=== PATIENT | female | born 1940 | race Caucasian/White ===

== ENCOUNTER 2016-11-02 17:54 | Emergency (ER) | payer MEDICARE ==
[2016-11-02] MEDS ORDERED: Sodium Chloride 0.9% 10 ML Syringe FLUSH PRN (18:09)
[2016-11-02] MEDS ORDERED: Sodium Chloride 0.9% 1,000 ML IV ONE (18:10)
--- NOTE | 2016-11-02 19:19 | EDM.PDOC ---
ED HPI SEIZURE COMPLAINT - General Time Seen by Provider: 11/02/16 17:55 - History of Present Illness INITIAL COMMENTS - FREE TEXT/NARRATIVE: DICTATED BY URIAH ARIAS PA-C - Related Data Allergies/ADRs: Allergies Allergy/AdvReac Type Severity Reaction Status Date / Time No Known Allergies Allergy Verified 11/02/16 19:23 Home Meds: Home Meds ALPRAZolam [Alprazolam] 0.25 mg PO Q12H PRN 11/02/16 [History] Levothyroxine 75 mcg PO ACBREAKFAST 11/02/16 [History] Lisinopril [Prinivil] 20 mg PO DAILY 11/02/16 [History] Oxybutynin [Oxybutynin ER] 10 mg PO DAILY 11/02/16 [History] Sertraline [Zoloft] 100 mg PO DAILY 11/02/16 [History] Social & Family History - Tobacco Use Second Hand Smoke Exposure: No - Alcohol Use Days Per Week of Alcohol Use: 0 - Recreational Drug Use Recreational Drug Use: No ED ROS GENERAL - Review of Systems Review Of Systems: See Below (DICTATED BY URIAH ARIAS PA-C) - Physical Exam Exam: See Below (DICTATED BY URIAH ARIAS PA-C) Course - Vital Signs Last Recorded V/S: Last Vital Signs Temp 35.3 C 11/02/16 18:00 Pulse 93 11/02/16 18:00 Resp 16 11/02/16 18:00 BP 147/51 H 11/02/16 18:00 Pulse Ox 92 L 11/02/16 18:00 - Orders/Labs/Meds Orders: Active Orders 24 hr Category Date Time Status EKG Documentation Completion [RC] STAT Care 11/02/16 18:09 Active CK W CKMB [CHEM] Stat Lab 11/02/16 18:33 Results COMPREHENSIVE METABOLIC PN,CMP [CHEM] Stat Lab 11/02/16 18:33 Results TROPONIN I [CHEM] Stat Lab 11/02/16 18:33 Results TSH ULTRASENSITIVE [CHEM] Stat Lab 11/02/16 18:33 Results Labs: Laboratory Tests 11/02/16 11/02/16 11/02/16 Range/Units 18:33 18:33 18:33 WBC 11.1 H (4.0-10.0) x10^3/uL RBC 3.99 L (4.00-5.50) x10^6/uL Hgb 12.1 (12.0-16.0) g/dL Hct 36.0 (33.0-47.0) % MCV 90.2 (78.0-93.0) fL MCH 30.3 (26.0-32.0) pg MCHC 33.6 (32.0-36.0) g/dL RDW Coeff of Damaris 14.3 (10.0-15.0) % Plt Count 295 (130-400) x10^3/uL Neut % (Auto) 86.5 H (50.0-80.0) % Lymph % (Auto) 7.2 L (25.0-50.0) % [place] % (Auto) 5.7 (2.0-11.0) % Eos % (Auto) 0.2 (0.0-4.0) % Baso % (Auto) 0.4 (0.2-1.2) % PT 10.9 (10.0-12.8) SEC INR 1.0 L (2.0-3.5) Sodium 137 (136-145) mmol/L Potassium 3.7 (3.5-5.1) mmol/L Chloride 102 (98-107) mmol/L Carbon Dioxide 26 (21-32) mmol/L BUN 17 (7-18) mg/dL Creatinine 1.0 (0.55-1.02) mg/dL Est Cr Clr Drug Dosing TNP Estimated GFR (MDRD) 54 Glucose 124 H (74-106) mg/dL Calcium 8.4 L (8.5-10.1) mg/dL Corrected Calcium 9.76 (8.5-10.1) mg/dL Total Bilirubin 1.1 H (0.2-1.0) mg/dL AST 12 L (15-37) U/L ALT 19 (14-59) U/L Alkaline Phosphatase 71 (46-116) U/L Creatine Kinase 82 (26-192) U/L Creatine Kinase Index 0.9 (0.0-4.0) % CK-MB (CK-2) 0.7 (0.0-3.6) ng/mL Troponin I < 0.017 (<=0.056) ng/mL Total Protein 7.2 (6.4-8.2) g/dL Albumin 2.3 L (3.4-5.0) g/dL Globulin 4.9 Albumin/Globulin Ratio 0.47 Urine Color (YELLOW) Urine Appearance (CLEAR) Urine pH (5.0-8.0) Ur Specific [place] Urine Protein (NEGATIVE) mg/dL Urine Glucose (UA) (NEGATIVE) mg/dL Urine Ketones (NEGATIVE) mg/dL Urine Occult Blood (NEGATIVE) Urine Nitrite (NEGATIVE) Urine Bilirubin (NEGATIVE) Urine Urobilinogen (0.2) EU/dL Ur Leukocyte Esterase (NEGATIVE) Urine RBC (NOT SEEN) /HPF Urine WBC (NOT SEEN) /HPF Ur Squamous Epith Cells (NEGATIVE) /HPF Ur Renal Epithelial Cell (NEGATIVE) /HPF Amorphous Sediment Urine Mucus (NEGATIVE) /LPF 11/02/16 Range/Units 18:55 WBC (4.0-10.0) x10^3/uL RBC (4.00-5.50) x10^6/uL Hgb (12.0-16.0) g/dL Hct (33.0-47.0) % MCV (78.0-93.0) fL MCH (26.0-32.0) pg MCHC (32.0-36.0) g/dL RDW Coeff of Damaris (10.0-15.0) % Plt Count (130-400) x10^3/uL Neut % (Auto) (50.0-80.0) % Lymph % (Auto) (25.0-50.0) % [place] % (Auto) (2.0-11.0) % Eos % (Auto) (0.0-4.0) % Baso % (Auto) (0.2-1.2) % PT (10.0-12.8) SEC INR (2.0-3.5) Sodium (136-145) mmol/L Potassium (3.5-5.1) mmol/L Chloride (98-107) mmol/L Carbon Dioxide (21-32) mmol/L BUN (7-18) mg/dL Creatinine (0.55-1.02) mg/dL Est Cr Clr Drug Dosing Estimated GFR (MDRD) Glucose (74-106) mg/dL Calcium (8.5-10.1) mg/dL Corrected Calcium (8.5-10.1) mg/dL Total Bilirubin (0.2-1.0) mg/dL AST (15-37) U/L ALT (14-59) U/L Alkaline Phosphatase (46-116) U/L Creatine Kinase (26-192) U/L Creatine Kinase Index (0.0-4.0) % CK-MB (CK-2) (0.0-3.6) ng/mL Troponin I (<=0.056) ng/mL Total Protein (6.4-8.2) g/dL Albumin (3.4-5.0) g/dL Globulin Albumin/Globulin Ratio Urine Color Dark yellow H (YELLOW) Urine Appearance Cloudy H (CLEAR) Urine pH 6.0 (5.0-8.0) Ur Specific [place] 1.010 Urine Protein Negative (NEGATIVE) mg/dL Urine Glucose (UA) Negative (NEGATIVE) mg/dL Urine Ketones Negative (NEGATIVE) mg/dL Urine Occult Blood Negative (NEGATIVE) Urine Nitrite Negative (NEGATIVE) Urine Bilirubin Negative (NEGATIVE) Urine Urobilinogen 1.0 (0.2) EU/dL Ur Leukocyte Esterase Small H (NEGATIVE) Urine RBC 0-5 (NOT SEEN) /HPF Urine WBC 0-5 (NOT SEEN) /HPF Ur Squamous Epith Cells Few H (NEGATIVE) /HPF Ur Renal Epithelial Cell Occasional H (NEGATIVE) /HPF Amorphous Sediment Moderate Urine Mucus Rare H (NEGATIVE) /LPF Meds: Medications Discontinued Medications Generic Name Dose Route Start Last Admin Trade Name Freq PRN Reason Stop Dose Admin Sodium Chloride 1,000 mls @ 1,000 mls/hr 11/02/16 18:10 Normal Saline IV 11/02/16 19:09 .BOLUS ONE Sodium Chloride 10 ml 11/02/16 18:09 Saline Flush FLUSH ASDIRECTED PRN Keep Vein Open Departure - Departure Time of Disposition: 19:33 Disposition: Home, Self-Care 01 Condition: good Clinical Impression: Bilateral leg weakness Fall Qualifiers: Encounter type: initial encounter Qualified Code(s): W19.XXXA - Unspecified fall, initial encounter Instructions: Rehydration, Adult, Fall Prevention in the Home, [id number] Referrals: Joanna Orozco MD [Primary Care Provider] - Forms: ED Department Discharge Additional Instructions: 1. Stay well hydrated and rest 2. See your Primary as symptoms warrant - Problem List Review Problem List Initiated/Reviewed/Updated: Yes
[2016-11-02 19:20] LABS: CHLORIDE,CL 102 mmol/L (98-107); SODIUM,NA 137 mmol/L (136-145)
[2016-11-02 19:29] VITALS: BP 147/51
--- NOTE | 2016-11-03 07:45 | ER ---
Date of Service: 11/02/2016 SUBJECTIVE: The patient presents to the emergency room following a near syncopal episode. The patient states that she was preparing dinner when she became lightheaded and experienced a near syncopal episode. She stated that she did feel lightheaded prior to the event. She states that she did not experience any spinning type vertigo and again was only experiencing this lightheadedness. She states she was not experiencing any chest pain or shortness of breath or palpitations prior to the event. She states that she has a history of a near syncope in the recent past as well. She states that she has not been worked up for this on an outpatient basis. PAST MEDICAL HISTORY: 1. Hypertension. 2. Hypothyroidism. 3. Urinary incontinence. 4. Depression. 5. Anxiety. MEDICATIONS: 1. Sertraline. 2. Oxybutynin. 3. Lisinopril. 4. Levothyroxine. 5. Alprazolam. 6. Oxybutynin. ALLERGIES: NKDA. REVIEW OF SYSTEMS: General: No fever or chills. HEENT: No sore throat, rhinorrhea, congestion. Respiratory: No shortness breath. Cardiac: Denies any substernal chest pain. No jaw, arm, neck, or back pain. GI: No nausea, vomiting, or diarrhea. No melena, hematochezia, or hematemesis. : Denies any dysuria. Musculoskeletal: No myalgias or arthralgias. Neurologic: No fainting, blackouts, lightheadedness. PHYSICAL EXAMINATION: General: This is a 76-year-old female, in no acute distress. Vital signs: Please see nurse's notes. Orthostatic vitals were negative. Skin: Warm, pink, and dry. HEENT: Head is normocephalic, atraumatic. Eyes, PERRLA. Extraocular movements are intact. Ears, TMs are clear. Mouth, oral mucosa is moist. Lungs: Clear to auscultation. No carotid bruits noted. Heart: Regular rate and rhythm. Abdomen: Soft, nontender. There is no hepatosplenomegaly noted. There is no masses noted. Extremities: Without edema. Neurologic: She is alert, oriented, answers all questions appropriately. Her speech is fluent. Her gait is within normal limits. DIAGNOSTIC DATA: EKG was obtained showing a sinus rhythm without any acute ST or T-wave abnormalities. Labs consisting of CBC, CMP, INR, troponin, TSH, UA, and CK-MB were obtained and are pending. Please refer to Mike Santos's documentation regarding disposition for this patient. ASSESSMENT: Near syncope. PLAN: Again, please refer to Mike Santos's documentation regarding disposition of this patient. MWK: 11/02/2016 18:46:35 MODL: 11/02/2016 21:19:42 /[id number]
== END 2016-11-02 19:50 | disposition home or self-care (01) ==
LOC: VM.ED 17:54
DX: R55 Syncope and collapse (principal); I10 Essential (primary) hypertension; E03.9 Hypothyroidism, unspecified; F32.9 Major depressive disorder, single episode, unspecified; F41.9 Anxiety disorder, unspecified
CPT/HCPCS: 36415; 80053; 81001; 82550; 82553; 84443; 84484; 85025; 85610; 93005; 99284-GF; 99285

== ENCOUNTER 2016-11-04 08:09 | Emergency (ER) | payer MEDICARE, OTHER ==
--- NOTE | 2016-11-04 08:16 | EDM.PDOC ---
ED HPI Trauma - General Chief Complaint: Trauma Stated Complaint: fell on right side; rib pain Time Seen by Provider: 11/04/16 08:15 Source: Reports: Patient, Family, RN, RN notes reviewed History Limitations: Reports: No limitations - History of Present Illness INITIAL COMMENTS - FREE TEXT/NARRATIVE: Patient presents emergency room at [facility] complaining of right-sided rib pain. The patient states that she fell at home 2 days ago. The patient states that she slipped and fell down a flight of stairs. No previous injury or trauma to the right ribs. Patient denies any head injury. Patient denies any LOC. Patient states it hurts to take in a deep breath. Patient states the pain is worse along the right lower lateral ribs extending around to the right midthoracic back. Patient is unsure of how or why she fell. Patient does remember the incident at home. Patient states the rib pain has progressively gotten worse over the past couple of days. Symptom Onset Date: 11/02/16 Occurred When: other Occurred Where: home Method of Injury: fall Severity: moderate Pain/Injury Location: Reports: chest Consciousness: Reports: no loss of consciousness, remembers incident, remembers coming to hosp Associated Symptoms: Reports: muscle spasms Allergies/ADRs: Allergies No Known Allergies Allergy (Verified 11/04/16 08:35) Home Medications: Ambulatory Orders ALPRAZolam [Alprazolam] 0.25 mg PO Q12H PRN 11/02/16 [Confirmed 11/04/16] Levothyroxine 75 mcg PO ACBREAKFAST 11/02/16 [Confirmed 11/04/16] Lisinopril [Prinivil] 20 mg PO DAILY 11/02/16 [Confirmed 11/04/16] Oxybutynin [Oxybutynin ER] 10 mg PO DAILY 11/02/16 [Confirmed 11/04/16] Sertraline [Zoloft] 100 mg PO DAILY 11/02/16 [Confirmed 11/04/16] Cyclobenzaprine HCl 10 mg PO Q8HR PRN #30 tablet 11/04/16 Hydrocodone/Acetaminophen [Hydrocodon-Acetaminophen 5-325] 1 each PO Q6HR PRN # 15 tablet 11/04/16 Past Medical History Cardiovascular History: Reports: Hypertension Psychiatric History: Reports: Anxiety Endocrine/Metabolic History: Reports: Hypothyroidism Social & Family History - Tobacco Use Smoking Status *Q: Never Smoker Second Hand Smoke Exposure: No - Alcohol Use Days Per Week of Alcohol Use: 0 - Recreational Drug Use Recreational Drug Use: No Review of Systems - Review of Systems Review Of Systems: See Below Constitutional: Denies: chills, fever Respiratory: Denies: Shortness of Breath, Cough Cardiovascular: Reports: chest pain (right rib pain ) Musculoskeletal: Reports: back pain (right ribs) Skin: Reports: bruising (right upper arm) Neurological: Denies: Dizziness, Headache, Numbness, Paresthesia, Tingling ED EXAM, TRAUMA (MAJOR/MULTI) - Physical Exam Exam: See Below Exam Limited By: No limitations General Appearance: alert, no apparent distress Head: atraumatic, normocephalic Eyes: bilateral eye: EOMI, normal inspection, PERRL Neck: non-tender, full range of motion, normal alignment, normal inspection Cardiovascular: regular rate, rhythm Respiratory/Chest: no respiratory distress, lungs clear, normal breath sounds, splinting, rib tenderness, right Extremities: no evidence of injury Neurologic: alert, oriented x 3 Skin: Normal color, Warm/dry, Ecchymosis (right lateral upper arm) - Sowmya Coma Score Best Eye Response (Sowmya): (4) open spontaneously Best Verbal Response ([place]): (5) oriented Best Motor Response ([place]): (6) obeys commands [place] Total: 15 Course - Vital Signs Last Recorded V/S: Last Vital Signs Temp 36.5 C 11/04/16 08:09 Pulse 103 H 11/04/16 08:09 Resp 20 11/04/16 08:09 BP 173/90 H 11/04/16 08:09 Pulse Ox - Orders/Labs/Meds Orders: Active Orders 24 hr Category Date Time Status Ribs 2V w Chest Rt [CR] Stat Exams 11/04/16 08:17 Taken Meds: Medications Discontinued Medications Generic Name Dose Route Start Last Admin Trade Name Freq PRN Reason Stop Dose Admin Morphine Sulfate 1 mg 11/04/16 08:19 11/04/16 08:29 Morphine IM 11/04/16 08:20 1 mg ONETIME ONE Administration Orphenadrine Citrate 60 mg 11/04/16 08:30 11/04/16 08:26 Norflex IM 11/04/16 08:31 60 mg Q12H ONE Administration - Radiology Interpretation Free Text/Narrative:: CXR w/2V Rib: No evidence of rib fracture; moderate bibasilar infiltrate/ atelectasis and small effusions See scanned report in EMR Departure - Departure Time of Disposition: 09:09 Disposition: Home, Self-Care 01 Condition: good Clinical Impression: Rib pain on right side Contusion of rib on right side Qualifiers: Encounter type: initial encounter Qualified Code(s): S20.211A - Contusion of right front wall of thorax, initial encounter Fall Qualifiers: Encounter type: subsequent encounter Qualified Code(s): W19.XXXD - Unspecified fall, subsequent encounter Prescriptions: Hydrocodone/Acetaminophen [Hydrocodon-Acetaminophen 5-325] 1 each PO Q6HR PRN # 15 tablet PRN Reason: Pain (Severe 7-10) Cyclobenzaprine HCl 10 mg PO Q8HR PRN #30 tablet PRN Reason: Muscle Spasm Instructions: Muscle Cramps and Spasms, Rib Contusion Referrals: Joanna Orozco MD [Primary Care Provider] - Forms: ED Department Discharge Additional Instructions: 1. Stay well hydrated and rest 2. Cough and deep breath several times a day 3. May use a rib belt to help with pain 4. Use narcotic pain meds sparingly as they will cause drowsiness 5. May alternate Tylenol/Advil as needed 6. See your Primary as symptoms warrant - Problem List Review Problem List Initiated/Reviewed/Updated: Yes - My Orders Last 24 Hours: My Active Orders 11/04/16 08:17 Ribs 2V w Chest Rt [CR] Stat - Assessment/Plan Last 24 Hours: My Active Orders 11/04/16 08:17 Ribs 2V w Chest Rt [CR] Stat
[2016-11-04] MEDS ORDERED: Morphine 2 MG/ML Syringe IM ONE (08:19)
[2016-11-04 08:58] VITALS: BP 173/90
== END 2016-11-04 09:30 | disposition home or self-care (01) ==
LOC: VM.ED 08:09
DX: S20.211A Contusion of right front wall of thorax, initial encounter (principal); I10 Essential (primary) hypertension; F41.9 Anxiety disorder, unspecified; E03.9 Hypothyroidism, unspecified; W19.XXXA Unspecified fall, initial encounter; Y92.009 Unspecified place in unspecified non-institutional (private) residence as the place of occurrence of the external cause
CPT/HCPCS: 71101; 96372; 99283; 99284; J2270; J2360

== ENCOUNTER 2016-11-05 10:46 | Inpatient (IN) | payer MEDICARE, OTHER ==
[2016-11-05] MEDS ORDERED: Morphine 4 MG/ML Syringe IVPUSH ONE (11:06)
[2016-11-05 12:11] LABS: CHLORIDE,CL 98 mmol/L (98-107); SODIUM,NA 131 mmol/L (136-145)
[2016-11-05] MEDS ORDERED: Sodium Chloride 0.9% 1,000 ML IV ONE (12:11)
[2016-11-05] MEDS ORDERED: cefTRIAXone 1 GM Vial IVPUSH ONE (12:14)
[2016-11-05] MEDS ORDERED: Azithromycin 250 MG Tab PO ONE (12:15)
--- NOTE | 2016-11-05 15:07 | PCM.HP ---
H&P History of Present Illness - General Date of Service: 11/05/16 Admit Problem/Dx: Admission Diagnosis/Problem Admission Diagnosis/Problem Pneumonia Source of Information: Patient History Limitations: Reports: No limitations - History of Present Illness Initial Comments - Free Text/Narative: Mrs. Friedman is a 76 yo female who presented to the ED today for evaluation after another fall today. This was her third visit to the ED in the past week, all for falls. She was walking in her living room today when she felt her legs go weak and she fell. She denies any syncope, head trauma, or LOC from the fall. She landed on her knees and does not believe that she hit anything else but she cannot say for sure. Her only area of pain is over the right ribs. She otherwise denies concerns over the past few days. On further questioning, she does admit that she has had some trouble with dyspnea on exertion "forever" that has been slowly getting worse over time. She denies any chest pain, cough, fever, or chills. She otherwise has no concerns. ROS negative as below. Right Hip Pain Score (Numeric/FACES): 8 Right Thoracic Pain Score (Numeric/FACES): 8 - Related Data Allergies/Adverse Reactions: Allergies Allergy/AdvReac Type Severity Reaction Status Date / Time No Known Allergies Allergy Verified 11/05/16 11:24 Home Medications: Home Meds ALPRAZolam [Alprazolam] 0.25 mg PO Q12H PRN 11/02/16 [History] Levothyroxine 75 mcg PO ACBREAKFAST 11/02/16 [History] Lisinopril [Prinivil] 30 mg PO DAILY 11/02/16 [History] Oxybutynin [Oxybutynin ER] 10 mg PO DAILY 11/02/16 [History] Sertraline [Zoloft] 150 mg PO DAILY 11/02/16 [History] Past Medical History HEENT History: Reports: None Cardiovascular History: Reports: High cholesterol, Hypertension Respiratory History: Reports: None Gastrointestinal History: Reports: None Genitourinary History: Reports: Urinary incontinence Musculoskeletal History: Reports: Arthritis, Osteoporosis Neurological History: Reports: None Psychiatric History: Reports: Anxiety Endocrine/Metabolic History: Reports: Hypothyroidism Hematologic History: Reports: None Immunologic History: Reports: None Oncologic (Cancer) History: Reports: None Dermatologic History: Reports: None - Infectious Disease History Infectious Disease History: Reports: None - Past Surgical History GI Surgical History: Reports: Colon Other GI Surgeries/Procedures: colon surgery bulge Female Surgical History: Reports: section, Hysterectomy, Other (see below) (bladder repair) Social & Family History - Family History Cardiac: Reports: Hypertension Respiratory: Reports: COPD Psychiatric: Reports: Anxiety Endocrine/Metabolic: Reports: Diabetes, type II Oncologic: Reports: Prostate - Tobacco Use Smoking Status *Q: Former Smoker Tobacco Use Within Last Twelve Months: No Second Hand Smoke Exposure: No - Caffeine Use Caffeine Use: Reports: Coffee - Alcohol Use Alcohol Use History: No Days Per Week of Alcohol Use: 0 Alcohol Use in Last Twelve Months: No - Recreational Drug Use Recreational Drug Use: No - Living Situation & Occupation Living situation: Reports: , with significant other (Just moved into a house in town - independent, no assisted living or SNF) 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 Denies: Cough, Sputum Cardiovascular: Reports: no symptoms Gastrointestinal: Reports: No symptoms Genitourinary: Reports: no symptoms Musculoskeletal: Reports: no symptoms Skin: Reports: no symptoms Psychiatric: Reports: no symptoms Neurological: Reports: No Symptoms Exam - Exam Exam: See Below - Vital Signs Vital Signs: Last Vital Signs Temp 37.2 C 11/05/16 13:09 Pulse 116 H 11/05/16 13:09 Resp 24 H 11/05/16 13:09 BP 152/76 H 11/05/16 13:09 Pulse Ox 94 L 11/05/16 14:57 Weight: 96.252 kg - Exam General: alert, cooperative. No: mild distress, moderate distress, severe distress HEENT: Conjunctiva clear, Mucosa moist & pink, Pupils equal, Pupils reactive Neck: supple, trachea midline. No: lymphadenopathy, thyromegaly Lungs: Normal respiratory effort, Crackles (right mid and lower lung peck). No: Rales, Rhonchi, Wheezing Cardiovascular: regular rate, regular rhythm, normal S1, normal S2. No: systolic murmur, diastolic murmur Abdomen: normal bowel sounds, soft. No: organomegaly, distention, tenderness Back Exam: normal inspection, full range of motion (cervical spine). No: vertebral tenderness (cervical, thoracic, or lumbar spine) Extremities: normal inspection, normal pulses, edema (1+ bilateral) Skin: warm, dry, intact Neurological: cranial nerves intact, reflexes equal bilateral, strength equal bilateral, normal speech, normal tone, sensation intact. No: focal deficit - Patient Data Result Diagrams: 11/05/16 11:15 11/05/16 11:15 *Q Meaningful Use (ADM) - VTE *Q VTE Criteria *Q: - Stroke *Q Stroke Criteria *Q: - AMI *Q AMI Criteria *Q: - Problem List (1) Multifocal pneumonia SNOMED Code(s): 232836402 ICD Code: J18.9 - PNEUMONIA, UNSPECIFIED ORGANISM Status: Acute Current Visit: Yes Problem Details: - Although the patient has not had true symptoms of pneumonia, her WBC and chest CT confirm that she does, in fact, have pneumonia. - Given the multifocal nature of the pneumonia and the presence of the loculated effusion, I would cover her more broadly than typical for CAP. - Therefore, will do Zosyn 4.5 gm IV q6 hours. - She does not have risk factors for MRSA and her presentation is not typical for this either; therefore, I will not cover her with vancomycin for now. - Would consider close follow-up chest x-ray (48-72 hours) to document lack of progression of her pneumonia. - She does meet sepsis criteria based on tachycardia and elevated WBC but I am reassured by the fact that her BP is actually high rather than normal. I think it would be acceptable to keep her here in [place] for now with the understanding that she may need to be transferred to [place] if she were to clinically deteriorate. (2) Sepsis SNOMED Code(s): 65862551 ICD Code: A41.9 - SEPSIS, UNSPECIFIED ORGANISM Status: Acute Current Visit: Yes Problem Details: - Secondary to pneumonia. - Given elevated BNP and hypertension, will hold off on additional IV fluids for now. - If her tachycardia does not continue to improve, will consider starting gentle IV fluids. Otherwise, bolus PRN. Qualifiers: Sepsis type: sepsis due to unspecified organism Qualified Code(s): A41.9 - Sepsis, unspecified organism (3) Hypoxia SNOMED Code(s): 681637292, 430054985 ICD Code: R09.02 - HYPOXEMIA Status: Acute Current Visit: Yes Problem Details: - Secondary to pneumonia. - Patient is not in any respiratory distress. - CHF considered as an alternative due to cardiomegaly on CXR and elevated BNP. However, CT scan read does not show any evidence of fluid overload such as would be present in CHF. Therefore, we will not treat for that at this time. - Other differentials considered and excluded are: anemia and PE. - Oxygen to keep saturations >90%. (4) Generalized weakness SNOMED Code(s): 08730315 ICD Code: R53.1 - WEAKNESS Status: Acute Current Visit: Yes Problem Details: - Likely secondary to above. Other causes excluded with laboratory work -up as in the ED. No focal neurologic deficits to warrant intracranial evaluation. Nothing to suggest an acute lower back pathology causing the leg weakness. - PT/OT consult. Patient may require swing bed following her acute hospital stay. (5) Fall SNOMED Code(s): 4725988, 440516202 ICD Code: W19.XXXA - UNSPECIFIED FALL, INITIAL ENCOUNTER Status: Acute Current Visit: No Problem Details: - Mechanical fall secondary to generalized weakness related to her pneumonia. - No injuries noted. C-spine cleared. - PT/OT consult as above. Qualifiers: Encounter type: initial encounter Qualified Code(s): W19.XXXA - Unspecified fall, initial encounter (6) Contusion of rib on right side SNOMED Code(s): 456790282 ICD Code: S20.211A - CONTUSION OF RIGHT FRONT WALL OF THORAX, INITIAL ENCOUNTER Status: Acute Current Visit: No Problem Details: - Right chest pain secondary to rib contusion vs. effusion related to pneumonia. - Will schedule tylenol at this point and add other pain control measures as needed. Qualifiers: Encounter type: initial encounter Qualified Code(s): S20.211A - Contusion of right front wall of thorax, initial encounter (7) Hypothyroidism SNOMED Code(s): 21905098 ICD Code: E03.9 - HYPOTHYROIDISM, UNSPECIFIED Status: Chronic Current Visit: Yes Problem Details: - Continue levothyroxine. Qualifiers: Hypothyroidism type: acquired Qualified Code(s): E03.9 - Hypothyroidism, unspecified (8) Hypertension SNOMED Code(s): 03294586 ICD Code: I10 - ESSENTIAL (PRIMARY) HYPERTENSION Status: Chronic Current Visit: Yes Problem Details: - BPs up on admission, likely secondary to pain. - Continue home medications. Qualifiers: Hypertension type: essential hypertension Qualified Code(s): I10 - Essential (primary) hypertension (9) Osteoporosis SNOMED Code(s): 81955855 ICD Code: M81.0 - AGE-RELATED OSTEOPOROSIS W/O CURRENT PATHOLOGICAL FRACTURE Status: Chronic Current Visit: Yes Problem Details: - Patient discontinued her fosamax so we will not give that to her here. - Can be discussed again as an outpatient. Qualifiers: Osteoporosis type: age-related Presence of current pathological fracture: without current pathological fracture Qualified Code(s): M81.0 - Age-related osteoporosis without current pathological fracture (10) Adjustment disorder with anxious mood SNOMED Code(s): 42412674 ICD Code: F43.22 - ADJUSTMENT DISORDER WITH ANXIETY Status: Chronic Current Visit: Yes Problem Details: - Continue xanax. (11) Mixed incontinence SNOMED Code(s): 297463554 ICD Code: N39.46 - MIXED INCONTINENCE Status: Chronic Current Visit: Yes Problem Details: - Continue oxybutynin. Problem List Initiated/Reviewed/Updated: Yes Orders Last 24hrs: Active Orders 24 hr Category Date Time Status Daily Weight [Height and Weight] [RC] 07 Care 11/06/16 07:00 Active Notify Provider Vital Signs [RC] ASDIRECTED Care 11/05/16 14:40 Ordered Oxygen Therapy [RC] PRN Care 11/05/16 14:39 Ordered Up With Assistance [RC] ASDIRECTED Care 11/05/16 14:39 Ordered VTE/DVT Education [RC] PER UNIT ROUTINE Care 11/05/16 14:39 Ordered Vital Signs [RC] Q4H Care 11/05/16 14:39 Ordered OT Evaluation and Treatment [CONS] Routine Cons 11/05/16 14:39 Ordered PT Evaluation and Treatment [CONS] Routine Cons 11/05/16 14:39 Ordered Regular Diet [DIET] Diet 11/05/16 Dinner Ordered Chest w Cont [CT] Stat Exams 11/05/16 14:52 Ordered Resuscitation Status Routine Resus Stat 11/05/16 14:39 Ordered Medication Orders Sodium Chloride (Saline Flush) 10 ml FLUSH ASDIRECTED PRN PRN Reason: Keep Vein Open Assessment/Plan Comment:: 76 yo female admitted with a fall secondary to generalized weakness who was found to have bilateral multifocal pneumonia. See problems above for details. IV antibiotics. Patient is admitted to acute and I would anticipate a 72-96 hour acute stay with possible transition to swing bed after that. Lovenox for VTE prophylaxis. Patient is DNR/DNI per discussion on admission.
[2016-11-05] MEDS ORDERED: Piperacillin/Tazobactam 4.5 GM in Sodium Chloride 0.9% 100 ML IV ONE (18:00)
[2016-11-05] MEDS: Acetaminophen 500 MG Tab PO SCH (23:01)
[2016-11-05] MEDS: Sodium Chloride 0.9% 10 ML Syringe FLUSH PRN (23:01)
[2016-11-05] MEDS: Dextran 70/Hypromellose/PF Ophth Soln 0.9 ML UD EYEBOTH PRN (23:01)
[2016-11-06] MEDS: Piperacillin/Tazobactam 3.375 GM in Sodium Chloride 0.9% 100 ML IV SCH ×3 (02:03→18:17)
[2016-11-06] MEDS: Levothyroxine 75 MCG Tab PO SCH (06:08)
[2016-11-06] MEDS: Acetaminophen 500 MG Tab PO SCH ×3 (07:50→20:52)
[2016-11-06] MEDS: ALPRAZolam 0.25 MG Tab PO SCH (07:50)
[2016-11-06] MEDS: Sertraline 100 MG Tab PO SCH (07:50)
[2016-11-06] MEDS: Enoxaparin 40 MG/0.4 ML Syringe SUBCUT SCH (07:50)
[2016-11-06] MEDS: Lisinopril 20 MG Tab PO SCH (07:51)
[2016-11-06] MEDS: Oxybutynin 5 MG Tab.ER PO SCH (07:51)
[2016-11-06] MEDS: Dextran 70/Hypromellose/PF Ophth Soln 0.9 ML UD EYEBOTH PRN ×2 (07:53→22:44)
[2016-11-06 08:25] LABS: CHLORIDE,CL 104 mmol/L (98-107); SODIUM,NA 137 mmol/L (136-145)
[2016-11-06] MEDS: Sodium Chloride 0.9% 10 ML Syringe FLUSH PRN (10:25)
--- NOTE | 2016-11-06 11:34 | PN ---
Progress Note for LISETTE BENJAMIN Date: 11/06/2016 Room #: VM.204 SUBJECTIVE: This is hospital day #2 on a 76-year-old admitted with bilateral pneumonia with some question of right loculated pleural effusion. She had not been coughing, but had increasing weakness over the last week with 3 falls. She is coughing now in the hospital. She has not had any fever or chills. She feels her breathing is a little bit better. Her right chest wall pain is improved. There was some concern for rib fractures, but the CT ruled that out. She had just moved into town about 3 days ago with her . OBJECTIVE: Her weight today is 94 kg. She is down a few pounds since yesterday. Temperature 98.6, pulse 83, blood pressure 140/77, respiratory rate 24, O2 96 on 2 L. Last night, she had low blood pressure down to 92/44, but the next check during the night was 181/92. She had no symptoms with this. She is not sure why it was jumping around. LABORATORY DATA: Lab work does show white count improved from 16.6 to 14.1, hemoglobin stable at 11.4. All electrolytes are within normal range. ProBNP yesterday was 2505. She has not gotten any further IV fluids. Albumin was low at 1.7. CRP is 52. ASSESSMENT AND PLAN: 1. Falls. The patient denies syncope. She said it was related more to leg weakness. At this point, we discussed working with therapy. Underlying cause of the weakness could be the pneumonia. 2. Multifocal pneumonia with unspecified organism. Anaerobic coverage has been ordered with Zosyn. She is now coughing, and we could try to obtain sputum culture. 3. Long-standing anxiety. She takes about 1 Xanax per day. 4. Mild hypoxia, improving. She is on oxygen, but saturations are in the upper 90s. 5. Right rib contusion, improving. 6. Hypothyroidism. 7. Essential hypertension with labile blood pressures. We will continue to monitor closely. 8. Mixed urinary incontinence, on oxybutynin. Plan at this point, the patient will continue acute cares. She will continue IV Zosyn. We will get a sputum culture. I encouraged the nurses to have her up and walking in the halls today. Likely, she will be inpatient through until Tuesday for a PT assessment. She may even need swing bed or she may be ready to go home. For DVT prophylaxis, she is on Lovenox. MKA: 11/06/2016 11:00:01 MODL: 11/06/2016 11:25:31 /[id number]
[2016-11-06] MEDS: Albuterol/Ipratropium 3.0-0.5 MG/3 ML Neb Soln NEB PRN ×2 (16:16→22:44)
[2016-11-07] MEDS: Piperacillin/Tazobactam 3.375 GM in Sodium Chloride 0.9% 100 ML IV SCH (02:11)
[2016-11-07] MEDS: Levothyroxine 75 MCG Tab PO SCH (06:18)
[2016-11-07] MEDS: Albuterol/Ipratropium 3.0-0.5 MG/3 ML Neb Soln NEB PRN (07:03)
[2016-11-07 07:08] LABS: CHLORIDE,CL 106 mmol/L (98-107); SODIUM,NA 138 mmol/L (136-145)
[2016-11-07] MEDS: Enoxaparin 40 MG/0.4 ML Syringe SUBCUT SCH (07:56)
[2016-11-07] MEDS: Oxybutynin 5 MG Tab.ER PO SCH (07:56)
[2016-11-07] MEDS: ALPRAZolam 0.25 MG Tab PO SCH (07:56)
[2016-11-07] MEDS: Lisinopril 20 MG Tab PO SCH (07:57)
[2016-11-07] MEDS: Sertraline 100 MG Tab PO SCH (07:57)
[2016-11-07] MEDS: Acetaminophen 500 MG Tab PO SCH ×3 (07:57→19:50)
[2016-11-07] MEDS: Dextran 70/Hypromellose/PF Ophth Soln 0.9 ML UD EYEBOTH PRN (07:57)
[2016-11-07] MEDS: Amoxicillin/Clavulanate K 875-125 MG Tab PO SCH ×2 (10:10→19:50)
--- NOTE | 2016-11-07 11:06 | PN ---
Progress Note for LISETTE BENJAMIN Date: 11/07/2016 Room #: VM.204 SUBJECTIVE: This is hospital day #3 on a 76-year-old, admitted with multifocal pneumonia and weakness with falls at home. She is feeling much better. She has been up in the halls walking with nursing. She is not short of breath. She is not having chest pain. She still has some cough. She has been afebrile with improving white count. IV did come out this morning. OBJECTIVE: Vital Signs: Her temperature is 97.8, weight 95.1 kg, pulse 84, blood pressure 149/74, respiratory rate 20, O2 of 93% on 1 L. General: She is in no acute distress. Heart: Regular rate and rhythm. Lungs: Crackles noted over the right lower lung. Abdomen: Has positive bowel sounds. Soft and nontender. Extremities: Warm and dry. No edema. Mental Status: Alert and oriented x3. LABORATORY DATA: Shows a white count of 9.4, hemoglobin 10.7, platelets 14.6. Creatinine 0.8. All electrolytes normal with the exception of calcium of 8.1. Her proBNP on admission was 2505. Albumin on admission was low at 1.7. ASSESSMENT: 1. Falls related to weakness from pneumonia, improving. She is up in the halls working with nursing. She will be working with PT tomorrow. 2. Multifocal pneumonia with unspecified organism. She has been unable to produce a sputum culture. We will switch her IV Zosyn over to oral Augmentin to complete a 1 week course. 3. Long-standing anxiety. She is on Xanax. 4. Low albumin, possibly moderate malnutrition. I will get a protein creatinine ratio with the urine. 5. Right rib contusion, improving. 6. Mild hypoxia related to pneumonia, improving. 7. Essential hypertension. Blood pressure is under better control. 8. Hypothyroidism. 9. Mixed urinary incontinence. PLAN: At this point, the patient will continue acute cares. We will switch her IV antibiotics over to oral. We will continue her on Lovenox for DVT prophylaxis. Anticipate she will likely be discharged home tomorrow or transitioned over to swing bed. She would like me to continue with her inpatient care. I will notify Dr. Orozco. MKA: 11/07/2016 09:42:14 MODL: 11/07/2016 10:59:04 /[id number]
[2016-11-08] MEDS: Levothyroxine 75 MCG Tab PO SCH (06:39)
[2016-11-08] MEDS: Albuterol/Ipratropium 3.0-0.5 MG/3 ML Neb Soln NEB PRN (07:23)
--- NOTE | 2016-11-08 07:43 | ER ---
Date of Service: 11/05/2016 HISTORY OF PRESENT ILLNESS: Emma presents to the emergency room following a fall. She has had numerous falls and visits to the emergency room over the past week for frequent falls. She was seen by me in the emergency room on Tuesday, following a mechanical fall. At that time, she did not experience any significant trauma. She was also seen yesterday when she slipped and fell down a flight of stairs. At that time, she was complaining of right sided rib and chest pain. Her radiographs were negative. She states that today, she was experiencing some pain in her right hip post fall and continued right anterior chest pain. EMS was summoned and the patient was subsequently brought to our facility. PAST MEDICAL HISTORY: 1. Hypertension. 2. Hypothyroidism. 3. Urinary incontinence. 4. Depression. 5. Anxiety. MEDICATIONS: 1. Sertraline. 2. Oxybutynin. 3. Lisinopril. 4. Levothyroxine. 5. Alprazolam. ALLERGIES: No known drug allergies. REVIEW OF SYSTEMS: General: Fever and chills over the past 48 hours. Does complain of increased weakness. HEENT: No sore throat, rhinorrhea, or congestion. Respiratory: Positive for cough and some chest congestion. Cardiac: Denies any substernal chest pain. She does experience a right-sided anterior respiratory phasic chest pain. No jaw, arm, neck, or back pain. Gastrointestinal: No nausea, vomiting, or diarrhea. No melena, hematochezia, or hematemesis. Genitourinary: Denies any dysuria. Musculoskeletal: No myalgias or arthralgias. She was complaining of right hip pain according to EMS. Neurologic: Denies any fainting, blackouts, or lightheadedness. She recalls the entire event and states that her legs "gave out" and this caused her fall. PHYSICAL EXAMINATION: General: This is a 76-year-old female patient. No acute distress. Vital Signs: On arrival blood pressure was 187/104, pulse rate was 128, temperature was 37.2, respiratory rate was 26, and O2 saturation 86% on room air. Her blood pressure improved to 152/76 and heart rate to 116 after a fluid bolus. Skin: Warm, pale, and dry. HEENT: Head is normocephalic, atraumatic. Mouth, oral mucosa is somewhat dry. No erythema or external hypopharynx. Neck: Supple without masses. There is no lymphadenopathy. Lungs: Diminished with rhonchi in the mid lung peck. Heart: Regular rate and rhythm. Abdomen: Soft and nontender. There is no hepatosplenomegaly or masses noted. Extremities: Without edema. She has no increased discomfort with manipulation of her hips. I was able to flex her right hip to approximately 90 degree and this did not elicit any increased discomfort. Initially, there was some concern from EMS of limb shortening however when the patient was laid completely flat and her extremities were measured and found to be equal, No other musculoskeletal trauma noted. Her pelvis is stable. Neurovascular: Circulation, sensation, and motor function are all within normal limits in the distal portion of all of her extremities. Neurologic: Cranial 2 through 12 are intact. She has approximately 4/5 strength in both her upper and lower extremities. She has no pronator drift. Her speech is fluent. No facial droop noted. Smile symmetrical. Pelvis and right hip series was obtained. There was no evidence of any acute fracture or dislocation. LABORATORY DATA: WBCs 16.6, hemoglobin is 11.9, and platelets are 362. Coag; PT is 11.5, INR is 1.0. Chemistry; sodium is 131, potassium is 4.4, chloride is 98, bicarb is 22, BUN is 14, creatinine is 0.8, GFR is greater than 60, glucose is 104, lactic acid is 1.0, calcium is 8.4, corrected calcium is 10.24. Total bilirubin is 1.2, AST is 27, ALT is 19, and alkaline phosphatase is 96. Troponin is 0.038. C-reactive protein is 52.7. Total protein is 7.6, albumin is 1.7. TSH is 1.362. Urinalysis reveals a trace of occult blood negative for nitrites and leukocyte esterase. Specific gravity is 1.025. This is after approximately 500 mL of fluid bolus. She did have moderate urine bacteria, hyaline cast, and granular casts. To note, this was a quick cath UA. PA of portable chest x-ray was obtained. She does have evidence of right lower lobe infiltrate. Please note that this was noticed on her x-ray report yesterday as well. EMERGENCY ROOM COURSE: The patient was given 1000 mL of fluid bolus. She was given Rocephin 1 g IV and azithromycin 500 mg p.o. She remained stable in my care in the emergency room. ASSESSMENT: Healthcare-acquired pneumonia. PLAN: She does reside at [facility]. She does need admission criteria based on her age and vital signs. I did speak with Oralia Stone regarding acute admission for this patient. MWK: 11/05/2016 13:38:13 MODL: 11/05/2016 14:22:15 /[id number]
[2016-11-08] MEDS: Oxybutynin 5 MG Tab.ER PO SCH (08:04)
[2016-11-08] MEDS: Lisinopril 20 MG Tab PO SCH (08:04)
[2016-11-08] MEDS: Amoxicillin/Clavulanate K 875-125 MG Tab PO SCH (08:04)
[2016-11-08] MEDS: Sertraline 100 MG Tab PO SCH (08:05)
[2016-11-08] MEDS: ALPRAZolam 0.25 MG Tab PO SCH (08:06)
[2016-11-08] MEDS: Acetaminophen 500 MG Tab PO SCH ×2 (08:06→14:23)
[2016-11-08] MEDS: Enoxaparin 40 MG/0.4 ML Syringe SUBCUT SCH (08:07)
[2016-11-08 10:11] VITALS: BP 147/67
--- NOTE | 2016-11-09 03:11 | DISCH ---
PRIMARY DISCHARGE DIAGNOSES: 1. Bilateral multifocal pneumonia with concern for a loculated right pleural effusion, but clinically patient did well with no fevers, no worsening of cough, and resolving chest pain. 2. Hyponatremia related to pneumonia. SECONDARY DISCHARGE DIAGNOSES: 1. Right rib contusions related to fall. 2. Three falls at home related to weakness from pneumonia, improving. 3. Long-standing anxiety. 4. Low albumin with protein-creatinine ratio pending on discharge. 5. Mild hypoxia resolved, not requiring oxygen at discharge. 6. Essential hypertension, hypothyroidism, mixed urinary incontinence. 7. Moderate malnutrition with low albumin of 1.3. REASON FOR ADMISSION: On the date of admission, this 76-year-old came into the emergency room for third time. She had been falling at home. She has not had any cough or fevers, but x-ray was suggesting pneumonia. She had a CT PE protocol, which was negative but did show the multifocal pneumonia with consideration for a right loculated pleural effusion. Dr. Stone admitted the patient. She started her on IV Zosyn. She made me aware of the situation. By the next morning, the patient was already doing better. She continued on IV Zosyn until the morning of 11/07 when her IV came out. She was switched over to oral Augmentin and tolerated that. She was up. She was walking the halls with therapies. At point, her white count went up to 16,000, but it normalized down to 9.4. On 11/07, her hemoglobin remained fairly stable at 10.7. She had no acute signs of bleeding. The patient was on Lovenox for DVT prophylaxis during her stay. She, otherwise, had sodium that did drop down to 131 on admission, but normalized up to 138 on discharge. Her kidney function was always normal. The rest of the electrolytes were okay. Her bilirubin was mildly elevated at 1.2 with a low albumin at 1.7, which I repeated and was 1.3 on discharge. Protein-creatinine ratio was ordered and is pending on discharge. She had about 100 of protein in her initial urine. The patient had negative troponins. She was able to be weaned off oxygen. X-rays were suggestive of rib fracture, but CT did not confirm that and her chest pain completely resolved. By the day of discharge, she was hopeful to go home. She was up and she was working with therapy. They did not feel she needed any further hospital therapy. Therefore, the patient was sent home with home health and family had requested a bathing aide. PHYSICAL EXAMINATION: Vital Signs: On discharge include a temperature of 98.5, her weight was 95.2, blood pressure 147/67, respiratory rate 18, and O2 of 92% on room air. General: She was in no acute distress Heart: Regular rate and rhythm. Lungs: Lung sounds show decreased air entry over that right base, but could hear air movement throughout the lungs with crackles in the right base as well. Abdomen: Positive bowel sounds. There is a ventral hernia. It is easily reduced. It is nontender. Extremities: Warm and dry. No edema. Mental Status: Alert and orientated x3. She was cooperative and polite. She is homebound due to a recent admit of pneumonia and frequent falls at home. She will require nursing to monitor her ongoing new changes in medication with finishing out a course of antibiotics with Augmentin as well as OT and PT to work with her to prevent falls. This unsteadiness is related to weakness from pneumonia. The patient is home bound due to her overall weakness related to pneumonia and requires assist of another person to leave her home. Her does not drive. Dr. Steven will periodically review this plan of care. I did see the patient [id number] on 11/08/2016. The patient will complete Augmentin after another 5 doses; otherwise, an albuterol inhaler was also sent to the pharmacy for her as she has used something like this in the past. She was using some nebulizers during her stay for wheezing but did not feel like she would need them at home. Other chronic conditions for her include hyperlipidemia, osteoporosis, mixed urinary incontinence, chronic left knee pain, hypothyroidism, vitamin D deficiency, and alopecia. Thirty minutes spent on this discharge process. MKA: 11/08/2016 18:16:30 MODL: 11/09/2016 01:47:43 /[id number]
[2016-11-09] MEDS ORDERED: Sertraline 50 MG Tab PO SCH (08:00)
[2016-11-09] MEDS ORDERED: Lisinopril 10 MG Tab PO SCH (08:00)
== END 2016-11-08 14:20 | disposition home health service (06) | DRG 871 ==
LOC: VM.ED 10:46 → VM.MS 12:38
PROVIDERS: ADMIT Family Medicine; ATTEND Family Medicine
DX: A41.9 Sepsis, unspecified organism (principal); Y95 Nosocomial condition; J18.9 Pneumonia, unspecified organism; E87.1 Hypo-osmolality and hyponatremia; E44.0 Moderate protein-calorie malnutrition; R32 Unspecified urinary incontinence; S20.211A Contusion of right front wall of thorax, initial encounter; W19.XXXA Unspecified fall, initial encounter; Z91.81 History of falling; F41.8 Other specified anxiety disorders; R09.02 Hypoxemia; I10 Essential (primary) hypertension; E03.9 Hypothyroidism, unspecified; N39.46 Mixed incontinence; E88.09 Other disorders of plasma-protein metabolism, not elsewhere classified; M19.90 Unspecified osteoarthritis, unspecified site; R53.1 Weakness; M25.551 Pain in right hip
CPT/HCPCS: 36415; 71010; 73502; 80053; 81001; 82550; 82553; 83605; 83880; 84443; 84484; 85025; 85610; 86140; 87040 ×2; 93005; 96361; 96374; 96375; 99285; A9270; J0696; J2270; J7030; 71275; 80048; 82040; 82570; 84156; 94640-76; 94760; 97161-GP; 99283-GF; J1650; J2543; J7050

== ENCOUNTER 2017-04-24 11:51 | Emergency (ER) | payer MEDICARE ==
[2017-04-24 12:10] VITALS: BP 138/63
--- NOTE | 2017-04-24 12:23 | EDM.PDOC ---
ED HPI GENERAL MEDICAL PROBLEM - General Chief Complaint: Lower Extremity Injury/Pain Stated Complaint: RIGHT HIP/LEG PAIN Time Seen by Provider: 04/24/17 12:05 Source of Information: Reports: Patient History Limitations: Reports: No Limitations - History of Present Illness INITIAL COMMENTS - FREE TEXT/NARRATIVE: Patient is in the emergency room with right hip pain which is localized only to her right hip. She has no numbness or tingling down her right leg and she is not complaining of any low back pain. She has been lifting her around at the intermediate and thinks that she pulled a muscle and over did it. Her right hip does feel better when she is sitting in the pain is worse when she is getting up out of the chair and walking. After walking a short distance or hip pain does feel a little better but it is still there. 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[email or web address] 11/08/16 [ Rx] Past Medical History HEENT History: Reports: None Cardiovascular History: Reports: High Cholesterol, Hypertension Respiratory History: Reports: None Gastrointestinal History: Reports: None Genitourinary History: Reports: Urinary Incontinence Musculoskeletal History: Reports: Arthritis, Osteoporosis Neurological History: Reports: None Psychiatric History: Reports: Anxiety Endocrine/Metabolic History: Reports: Hypothyroidism Hematologic History: Reports: None Immunologic History: Reports: None Oncologic (Cancer) History: Reports: None Dermatologic History: Reports: None - Infectious Disease History Infectious Disease History: Reports: None - Past Surgical History GI Surgical History: Reports: Colon Other GI Surgeries/Procedures: colon surgery bulge Female Surgical History: Reports: Section, Hysterectomy, Other (See Below) Social & Family History - Family History Family Medical History: Noncontributory Cardiac: Reports: Hypertension Respiratory: Reports: COPD Psychiatric: Reports: Anxiety Endocrine/Metabolic: Reports: Diabetes, type II Oncologic: Reports: Prostate - Tobacco Use Smoking Status *Q: Never Smoker Second Hand Smoke Exposure: No - Caffeine Use Caffeine Use: Reports: Coffee - Alcohol Use Days Per Week of Alcohol Use: 0 - Recreational Drug Use Recreational Drug Use: No - Living Situation & Occupation Living situation: Reports: , with Significant Other Occupation: Retired Review of Systems - Review of Systems Review Of Systems: ROS reveals no pertinent complaints other than HPI. Constitutional: Reports: No Symptoms Eyes: Reports: No Symptoms Ears: Reports: No Symptoms Nose: Reports: No Symptoms Mouth/Throat: Reports: No Symptoms Respiratory: Reports: No Symptoms Cardiovascular: Reports: No Symptoms GI/Abdominal: Reports: No Symptoms Genitourinary: Reports: No Symptoms Musculoskeletal: Reports: Leg Pain, Muscle Pain, Muscle Stiffness, Other ( Patient is having rate hip muscle pain which does not radiate down her right leg and she is also not complaining of lumbar spine pain.) Skin: Reports: No Symptoms Neurological: Reports: No Symptoms. Denies: Tingling, Weakness, Gait Disturbance Psychiatric: Reports: No Symptoms ED EXAM, GENERAL - Physical Exam Exam: See Below Free Text/Narrative:: Patient does have pain when flexing her right hip and she also has pain when she leans towards her right hip. She has no pain in her right hip when she extends her back and there is no pain when she leans to the left hip. Exam Limited By: No Limitations General Appearance: Alert, No Apparent Distress Head: Atraumatic, Normocephalic Neck: Normal Inspection, Non-Tender, Full Range of Motion Respiratory/Chest: No Respiratory Distress, Lungs Clear, Normal Breath Sounds. No: Crackles, Rales, Rhonchi, Wheezing Cardiovascular: Normal Peripheral Pulses, Regular Rate, Rhythm, No Edema, No JVD , No Murmur Peripheral Pulses: 2+: Radial (L), Radial (R), Dorsalis Pedis (L), Dorsalis Pedis (R) GI/Abdominal: Normal Bowel Sounds, Soft, Non-Tender Extremities: Normal Inspection, Normal Range of Motion, Other (Right hip muscle pain with flexion of her right hip.) Neurological: Alert, Oriented, CN II-XII Intact, Normal Gait. No: Abnormal Gait Psychiatric: Normal Affect, Normal Mood Skin Exam: Warm, Dry, Intact, No Rash Course - Vital Signs Last Recorded V/S: Last Vital Signs Temp 35 C L 04/24/17 12:05 Pulse 73 04/24/17 12:05 Resp 16 04/24/17 12:05 BP 138/63 04/24/17 12:05 Pulse Ox 95 04/24/17 12:05 Departure - Departure Time of Disposition: 12:27 Disposition: Home, Self-Care 01 Condition: Good Clinical Impression: Sprain of hip - Discharge Information Instructions: Hip Pain Additional Instructions: May follow up with primary care provider if symptoms worsen or do not get better. Patient is instructed to use ibuprofen for pain and I also did instruct her to try ice packs or heating pads to see if that relieves the muscle aches.
== END 2017-04-24 12:38 | disposition home or self-care (01) ==
LOC: VM.ED 11:51
DX: S73.101A Unspecified sprain of right hip, initial encounter (principal); I10 Essential (primary) hypertension; Z79.899 Other long term (current) drug therapy; X50.0XXA Overexertion from strenuous movement or load, initial encounter
CPT/HCPCS: 99283; 99283-GF

== ENCOUNTER 2018-03-24 17:16 | Inpatient (IN) | payer MEDICARE ==
[2018-03-24] MEDS ORDERED: Sodium Chloride 0.9% 10 ML Syringe FLUSH PRN (17:50)
[2018-03-24] MEDS ORDERED: Ondansetron 4 MG/2 ML SDV IVPUSH ONE (17:51)
[2018-03-24] MEDS ORDERED: Sodium Chloride 0.9% 1,000 ML IV ONE (17:51)
--- NOTE | 2018-03-24 18:34 | EDM.PDOC ---
ED HPI GENERAL MEDICAL PROBLEM - General Chief Complaint: Gastrointestinal Problem Stated Complaint: Nausea; Vomiting; Abdominal Pain Time Seen by Provider: 03/24/18 17:35 Source of Information: Reports: Patient, Family, RN, RN Notes Reviewed History Limitations: Reports: No Limitations - History of Present Illness INITIAL COMMENTS - FREE TEXT/NARRATIVE: Patient presents to the emergency room at [facility] complaining of nausea and vomiting and generalized abdominal pain. The patient states that she had pneumonia about 2 weeks ago and was treated appropriately and did fine. The patient states that since her pneumonia she has never really felt well as far as weakness, nausea, and vomiting. The patient states that her vomiting got worse last evening around 2:30 in the morning. The patient states that she feels very dehydrated. The patient has not been taking in much fluids. The patient complains of generalized weakness. No focal neurological problems. The patient denies any chest pain or shortness of breath. Otherwise no other concerns. Onset: Unknown/Unsure Duration: Waxing/Waning Location: Reports: Abdomen, Generalized Quality: Reports: Pressure Severity: Moderate Improves with: Reports: None Worsens with: Reports: Eating, Movement Context: Denies: Activity, Sick Contact, Trauma Associated Symptoms: Reports: Nausea/Vomiting - Related Data Allergies Allergy/AdvReac Type Severity Reaction Status Date / Time No Known Allergies Allergy Verified 03/09/18 23:51 Home Meds: Home Meds ALPRAZolam [Alprazolam] 0.25 mg PO Q12H PRN 11/02/16 [History] Levothyroxine 75 mcg PO ACBREAKFAST 11/02/16 [History] Lisinopril [Prinivil] 30 mg PO DAILY 11/02/16 [History] Oxybutynin [Oxybutynin ER] 10 mg PO DAILY 11/02/16 [History] Sertraline [Zoloft] 150 mg PO DAILY 11/02/16 [History] Albuterol Sulfate [Proair Respiclick] 90 mcg IH Q4H PRN #1 aer.pow.ba 11/08/16 [ Rx] Past Medical History HEENT History: Reports: None Cardiovascular History: Reports: High Cholesterol, Hypertension Respiratory History: Reports: None Gastrointestinal History: Reports: None Genitourinary History: Reports: Urinary Incontinence Musculoskeletal History: Reports: Arthritis, Osteoporosis Neurological History: Reports: None Psychiatric History: Reports: Anxiety Endocrine/Metabolic History: Reports: Hypothyroidism Hematologic History: Reports: None Immunologic History: Reports: None Oncologic (Cancer) History: Reports: None Dermatologic History: Reports: None - Infectious Disease History Infectious Disease History: Reports: None - Past Surgical History GI Surgical History: Reports: Colon Other GI Surgeries/Procedures: colon surgery bulge Female Surgical History: Reports: Section, Hysterectomy, Other (See Below) Social & Family History - Family History Family Medical History: Noncontributory Cardiac: Reports: Hypertension Respiratory: Reports: COPD Psychiatric: Reports: Anxiety Endocrine/Metabolic: Reports: Diabetes, type II Oncologic: Reports: Prostate - Caffeine Use Caffeine Use: Reports: Coffee - Living Situation & Occupation Living situation: Reports: , with Significant Other Occupation: Retired ED ROS GENERAL - Review of Systems Review Of Systems: See Below Constitutional: Reports: Weakness, Fatigue. Denies: Fever, Chills Respiratory: Denies: Shortness of Breath, Cough Cardiovascular: Denies: Chest Pain, Palpitations GI/Abdominal: Reports: Abdominal Pain, Constipation, Nausea, Vomiting. Denies: Diarrhea Skin: Reports: No Symptoms Neurological: Reports: Dizziness, Weakness. Denies: Headache, Numbness, Paresthesia, Tingling ED EXAM, GI/ABD - Physical Exam Exam: See Below Exam Limited By: No Limitations General Appearance: Alert, No Apparent Distress Respiratory/Chest: No Respiratory Distress, Lungs Clear, Normal Breath Sounds Cardiovascular: Normal Peripheral Pulses, Regular Rate, Rhythm GI/Abdominal Exam: Guarding, Rigid, Tender (generalized), Abnormal Bowel Sounds (Hypoactive). No: Rebound Extremities: Normal Inspection Neurological: Alert, Oriented Skin Exam: Warm, Dry, Intact, Normal Color Course - Orders/Labs/Meds Orders: Active Orders 24 hr Category Date Time Status Abdomen 2V AP Flat Upright [CR] Stat Exams 03/24/18 17:50 Taken CBC WITH AUTO DIFF [HEME] Stat Lab 03/24/18 17:50 Ordered CMP [COMPREHENSIVE METABOLIC PN,CMP] [CHEM] Stat Lab 03/24/18 17:50 Ordered CRP [C-REACTIVE PROTEIN] [CHEM] Stat Lab 03/24/18 17:50 Ordered LACTIC ACID [CHEM] Stat Lab 03/24/18 17:50 Ordered Sodium Chloride 0.9% [Normal Saline] 1,000 ml Med 03/24/18 17:51 Active IV ONETIME Sodium Chloride 0.9% [Saline Flush] Med 03/24/18 17:50 Active 10 ml FLUSH ASDIRECTED PRN Peripheral IV Insertion Adult [OM.PC] Routine Oth 03/24/18 17:50 Ordered Medication Orders Sodium Chloride (Normal Saline) 1,000 mls @ 999 mls/hr IV ONETIME ONE Stop: 03/24/18 18:51 Sodium Chloride (Saline Flush) 10 ml FLUSH ASDIRECTED PRN PRN Reason: Keep Vein Open Meds: Medications Generic Name Dose Route Start Last Admin Trade Name Freq PRN Reason Stop Dose Admin Sodium Chloride 1,000 mls @ 999 mls/hr 03/24/18 17:51 Normal Saline IV 03/24/18 18:51 ONETIME ONE Sodium Chloride 10 ml 03/24/18 17:50 Saline Flush FLUSH ASDIRECTED PRN Keep Vein Open Discontinued Medications Generic Name Dose Route Start Last Admin Trade Name Freq PRN Reason Stop Dose Admin Ondansetron HCl 4 mg 03/24/18 17:51 Zofran IVPUSH 03/24/18 17:52 ONETIME ONE Departure - Departure Time of Disposition: 18:45 Disposition: Admitted As Inpatient 65 Condition: Good Clinical Impression: Small bowel obstruction - Discharge Information *PRESCRIPTION DRUG MONITORING PROGRAM REVIEWED*: Not Applicable *COPY OF PRESCRIPTION DRUG MONITORING REPORT IN PATIENT BEATRICE: Not Applicable ED Communication - ED Communication Date/Time Date: 03/24/18 Time Called: 18:40 - Discussed Case With (1) Discussed Case With (1): Admitting Provider Person/s Notified (1): Randal Machado - Conversation Summary Admitting Provider Agreed to Patient's Admission: Yes Patient Aware of Amendments fo Care Plan: Yes Patient's POA/Guardian Aware of Amendments to Care Plan: Yes - Problem List Review Problem List Initiated/Reviewed/Updated: Yes - My Orders Last 24 Hours: My Active Orders 03/24/18 17:50 Abdomen 2V AP Flat Upright [CR] Stat CBC WITH AUTO DIFF [HEME] Stat CMP [COMPREHENSIVE METABOLIC PN,CMP] [CHEM] Stat CRP [C-REACTIVE PROTEIN] [CHEM] Stat LACTIC ACID [CHEM] Stat Sodium Chloride 0.9% [Saline Flush] 10 ml FLUSH ASDIRECTED PRN Peripheral IV Insertion Adult [OM.PC] Routine 03/24/18 17:51 Sodium Chloride 0.9% [Normal Saline] 1,000 ml IV ONETIME - Assessment/Plan Last 24 Hours: My Active Orders 03/24/18 17:50 Abdomen 2V AP Flat Upright [CR] Stat CBC WITH AUTO DIFF [HEME] Stat CMP [COMPREHENSIVE METABOLIC PN,CMP] [CHEM] Stat CRP [C-REACTIVE PROTEIN] [CHEM] Stat LACTIC ACID [CHEM] Stat Sodium Chloride 0.9% [Saline Flush] 10 ml FLUSH ASDIRECTED PRN Peripheral IV Insertion Adult [OM.PC] Routine 03/24/18 17:51 Sodium Chloride 0.9% [Normal Saline] 1,000 ml IV ONETIME Assessment:: SBO Plan: Case discussed with Dr. Betty Machado. Patient will be admitted acute for SBO, weakness, dehydration.
[2018-03-24 19:13] LABS: CHLORIDE,CL 101 mmol/L (98-107); SODIUM,NA 135 mmol/L (136-145)
[2018-03-24 19:17] LABS: ANION GAP 10.6 mmol/L (10-20)
[2018-03-24] MEDS: Metoclopramide 10 MG/2 ML SDV IVPUSH ONE ×2 (19:51→20:09)
[2018-03-24] MEDS ORDERED: Metoclopramide 10 MG/2 ML SDV IVPUSH ONE (20:08)
[2018-03-24] MEDS ORDERED: LORazepam 2 MG/ML SDV IVPUSH PRN ×2 (21:31→23:10)
--- NOTE | 2018-03-24 23:03 | PCM.HP ---
H&P History of Present Illness - General Date of Service: 03/24/18 Admit Problem/Dx: Admission Diagnosis/Problem Admission Diagnosis/Problem Small bowel obstruction - History of Present Illness Initial Comments - Free Text/Narative: HPI: She had an episode of partial bowel obstruction with laparotomy, R hemicolectomy in 07/16 but had not really had any problem since then. Over the last week she developed cramping and constant abdominal pain, vomiting. She was seen in clinic on 03/14 and 03/20, but she was still stooling and did not appear distended and so she was treated conservatively, yesterday got MOM and prune juice, had a large loose stool but has continued to vomit. Until this morning she was still able to eat fairly well but now she has more abdominal pain, extremely anorectic, and vomiting larger amounts of greenish material. It does not have an odor that she is aware of. Much of her abdominal pain is constant and not cramping, but it is mild. She has had no stooling and had frequent vomiting today. Presented to ER this evening where she was noted to be quite distended with obstructive active bowel sounds and is admitted for partial bowel obstruction. Medical History: -She thinks her only medical admission was 4 pneumonia in 03/09/18, just recovered from that -She has Hx of vitamin D deficiency, Rx vitamin D from 03/17 until recently; also on Fosamax for osteoporosis -Hx for hypertension, on lisinopril 20 mg daily -HX hyperlipidemia -Hypothyroidism, on levothyroxine 75 g daily -Hx depression, successfully Rxd. Zoloft 150 mg daily Surgical History. -4 children, one by C/S -Partial hysterectomy -Hemicolectomy Family History: -Father of cancer, o -Mother of COPD, was not a smok -Has 1 brother with obesity and diabeteserldtory Social History: G[place] farm near [place], 2 daughters Ro and Shira live in the area, youngest daughter Sabrina lives in [place] and her son is a junior high school principal in [place]. 12/18/17, gets a lot of company from her dog. Systems Review: -Constitutional: Thinks her next annual physical is in 05/21, she felt quite well until about one week ago. -Eyes: Wears glasses but no other problems, no cataracts -ENT: Has rather severe hearing loss and is scheduled for audiogram on 04/03. Has upper dentures and a lower partial -Cardiac: Denies any heart problems, exertional chest pain or arrhythmia -Pulmonary: Never a smoker, no problems -GI: See HPI -Endocrine: Told on 03/17 to stop taking her vitamin D, level was OK no problems with blood sugar, last Lipids done 04/18 were OK, LDL 114, HDL 52, trig 137 -: Mixed urinary incontinence, thinks the Ditropan helps though still has some urge incontinence -Musculoskeletal: Mild arthritis but gets by -Heme: Denies any anemia or easy bruising or bleeding -Derm: Had alopecia after her illness in but that has resolved completely -Neurologic: Lots of trouble with poor balance, uses a cane all the time and still has trouble, thinks it is not from weakness or vertigo, just ataxia -Psych: Her present antidepressant is working well -Allergies: No seasonal allergies Physical Exam: -General: Cheerful and animated and alert, denies pain just now -Eyes: Pupils equal -Mouth and throat: Upper dentures, lower partial, hydration seems OK -Neck: No masses or thyroid enlargement, no bruit -Chest: Clear, no dyspnea -Heart: Sounds normal, regular -Abdomen: Noticeably distended, especially in upper abdomen, bowel signs mildly overactive and follow, mildly obstructive in nature; no generalized tenderness or rebound tenderness. Just since insertion of the NG tube about hour ago she has already had about 800 mL of thick greenish gastric output -Pelvic and rectal: Not done -Extremities: Knee joints are mildly thickened, hips and knees extend fully, joints of hands and wrists appear normal; good posterior tibial pulses bilateral , no ankle edema -Neurologic: Facial muscles, movement of arms and legs normal -Psych: Affect normal Impression: -Partial bowel obstruction -No abdominal tenderness, no indication presently for surgical consult -Hx of R hemicolectomy for previous bowel obstruction Plan: -NG suction -IV fluid -Denies needing anything for pain but requests something for sleep, Rx Ativan 1 mg IV q 2 htr p.r.n. -BMP in a.m. - Related Data Allergies/Adverse Reactions: Allergies Allergy/AdvReac Type Severity Reaction Status Date / Time No Known Allergies Allergy Verified 03/24/18 19:09 Home Medications: Home Meds ALPRAZolam [Alprazolam] 0.25 mg PO Q12H PRN 11/02/16 [History] Levothyroxine 75 mcg PO ACBREAKFAST 11/02/16 [History] Lisinopril [Prinivil] 30 mg PO DAILY 11/02/16 [History] Oxybutynin [Oxybutynin ER] 10 mg PO DAILY 11/02/16 [History] Sertraline [Zoloft] 150 mg PO DAILY 11/02/16 [History] Alendronate Sodium [Fosamax] 70 mg PO WEEKLY 03/24/18 [History] Cholecalciferol (Vitamin D3) [Vitamin D3] 2,000 unit PO DAILY 03/24/18 [History] Cyanocobalamin (Vitamin B12) [Vitamin B12] 1,000 mcg PO DAILY 03/24/18 [History] Multivitamin with Minerals [Multiple Vitamin] 1 tab PO DAILY 03/24/18 [History] Past Medical History HEENT History: Reports: None Cardiovascular History: Reports: High Cholesterol, Hypertension Respiratory History: Reports: None Gastrointestinal History: Reports: None Genitourinary History: Reports: Urinary Incontinence Musculoskeletal History: Reports: Arthritis, Osteoporosis Neurological History: Reports: None Psychiatric History: Reports: Anxiety Endocrine/Metabolic History: Reports: Hypothyroidism Hematologic History: Reports: None Immunologic History: Reports: None Oncologic (Cancer) History: Reports: None Dermatologic History: Reports: None - Infectious Disease History Infectious Disease History: Reports: None - Past Surgical History GI Surgical History: Reports: Colon Other GI Surgeries/Procedures: colon surgery bulge Female Surgical History: Reports: Section, Hysterectomy, Other (See Below) Social & Family History - Family History Family Medical History: Noncontributory Cardiac: Reports: Hypertension Respiratory: Reports: COPD Psychiatric: Reports: Anxiety Endocrine/Metabolic: Reports: Diabetes, type II Oncologic: Reports: Prostate - Tobacco Use Smoking Status *Q: Never Smoker Second Hand Smoke Exposure: No - Caffeine Use Caffeine Use: Reports: Coffee - Recreational Drug Use Recreational Drug Use: No - Living Situation & Occupation Living situation: Reports: , with Significant Other Occupation: Retired H&P Review of Systems - Review of Systems: Review Of Systems: See Below Exam - Exam Exam: See Below - Vital Signs Vital Signs: Last Vital Signs Temp 36.4 C 03/24/18 22:35 Pulse 96 03/24/18 22:35 Resp 20 03/24/18 22:35 BP 134/83 03/24/18 22:35 Pulse Ox 92 L 03/24/18 22:35 Weight: 90.718 kg - Patient Data Lab Results Last 24 hrs: Laboratory Results - last 24 hr 03/24/18 03/24/18 03/24/18 Range/Units 18:48 18:48 18:48 WBC 10.4 H (4.0-10.0) x10^3/uL RBC 4.26 (4.00-5.50) x10^6/uL Hgb 13.4 (12.0-16.0) g/dL Hct 38.9 (33.0-47.0) % MCV 91.3 (78.0-93.0) fL MCH 31.5 (26.0-32.0) pg MCHC 34.4 (32.0-36.0) g/dL RDW Coeff of Damaris 14.2 (10.0-15.0) % Plt Count 581 H D (130-400) x10^3/uL Neut % (Auto) 84.4 H (50.0-80.0) % Lymph % (Auto) 8.6 L (25.0-50.0) % [place] % (Auto) 6.5 (2.0-11.0) % Eos % (Auto) 0.3 (0.0-4.0) % Baso % (Auto) 0.2 (0.2-1.2) % Sodium 135 L (136-145) mmol/L Potassium 3.6 (3.5-5.1) mmol/L Chloride 101 (98-107) mmol/L Carbon Dioxide 27 (21-32) mmol/L Anion Gap 10.6 (10-20) mmol/L BUN 12 (7-18) mg/dL Creatinine 0.9 (0.55-1.02) mg/dL Est Cr Clr Drug Dosing TNP Estimated GFR (MDRD) > 60 Glucose 117 H (74-106) mg/dL Lactic Acid 1.0 (0.4-2.0) mmol/L Calcium 8.8 (8.5-10.1) mg/dL Corrected Calcium 9.92 (8.5-10.1) mg/dL Total Bilirubin 0.6 (0.2-1.0) mg/dL AST 15 (15-37) U/L ALT 21 (14-59) U/L Alkaline Phosphatase 61 (46-116) U/L C-Reactive Protein 0.6 (<=0.9) mg/dL Total Protein 7.2 (6.4-8.2) g/dL Albumin 2.6 L (3.4-5.0) g/dL Globulin 4.6 Albumin/Globulin Ratio 0.57 Result Diagrams: 03/24/18 18:48 03/24/18 18:48 Problem List Initiated/Reviewed/Updated: Yes Orders Last 24hrs: Active Orders 24 hr Category Date Time Status Admission Status [Patient Status] [ADT] Routine ADT 03/24/18 18:46 Active Patient Status [ADT] Routine ADT 03/24/18 22:35 Ordered NG [Gastrointestinal Tube Mgmt] [RC] 08,20 Care 03/24/18 21:30 Active Oxygen Therapy [RC] PRN Care 03/24/18 22:35 Ordered VTE/DVT Education [RC] PER UNIT ROUTINE Care 03/24/18 22:35 Ordered Vital Signs [RC] Q4H Care 03/24/18 22:35 Ordered Abdomen 2V AP Flat Upright [CR] Stat Exams 03/24/18 17:50 Taken BASIC METABOLIC PANEL,BMP [CHEM] Routine Lab 03/25/18 07:30 Ordered LORazepam [Ativan] Med 03/24/18 21:31 Active 1 mg IVPUSH Q1H PRN Sodium Chloride 0.9% [Saline Flush] Med 03/24/18 17:50 Active 10 ml FLUSH ASDIRECTED PRN Nasogastric Orogastric Tube Insertion [OM.PC] Routine Oth 03/24/18 19:01 Ordered Peripheral IV Insertion Adult [OM.PC] Routine Oth 03/24/18 17:50 Ordered Code Status [Resuscitation Status] Routine Resus Stat 03/24/18 21:33 Ordered Medication Orders Lorazepam (Ativan) 1 mg IVPUSH Q1H PRN PRN Reason: Anxiety Last Admin: 03/24/18 22:10 Dose: 1 mg Sodium Chloride (Saline Flush) 10 ml FLUSH ASDIRECTED PRN PRN Reason: Keep Vein Open Last Admin: 03/24/18 18:52 Dose: 10 ml
[2018-03-24] MEDS: D5 1/2 NS w/ 20 mEq/L KCl 1,000 ML IV SCH (23:22)
[2018-03-25] MEDS: D5 1/2 NS w/ 20 mEq/L KCl 1,000 ML IV SCH (07:20)
[2018-03-25 07:36] LABS: CHLORIDE,CL 105 mmol/L (98-107); SODIUM,NA 138 mmol/L (136-145)
[2018-03-25 07:44] LABS: ANION GAP 7.9 mmol/L (10-20)
--- NOTE | 2018-03-25 10:16 | PCM.PN ---
- General Info Date of Service: 03/25/18 Admission Dx/Problem (Free Text): History: Overnight she has remained afebrile and normotensive and says she feels better this morning. She did get 1 dose of IV Ativan and slept well after that. She had about 1300 mL of greenish fluid over the first 8 hours, but since early a.m. hardly any, tolerated getting up to the bathroom, and passed some flatus. She notices that her abdominal distention has gone down considerably. She always has some protuberance in the RUQ, apparently a ventral hernia from her previous laparotomy. Exam: -The ventral hernia in the RUQ is still protuberant but very soft -Remainder of abdomen is no longer distended -No abdominal tenderness -Bowel sounds are not as active as yesterday and are normal, no longer hollow or obstructive Impression: -Episode of partial bowel obstruction, seems to be resolving satisfactorily -Hx of hemicolectomy 5 years ago for obstruction Plan: -Clamped to 3 hours, then if less than 400 mL output will remove it -If still doing well by suppertime then will start some oral liquids - Patient Data Vitals - Most Recent: Last Vital Signs Temp 36.9 C 03/25/18 09:52 Pulse 89 03/25/18 09:52 Resp 16 03/25/18 09:52 BP 118/73 03/25/18 09:52 Pulse Ox 95 03/25/18 09:52 Weight - Most Recent: 90.718 kg I&O - Last 24 Hours: Intake & Output 03/24/18 03/25/18 03/25/18 22:59 06:59 14:59 Intake Total 480 851 Output Total 1300 250 Balance -820 601 Lab Results Last 24 Hours: Laboratory Results - last 24 hr 03/24/18 03/24/18 03/24/18 Range/Units 18:48 18:48 18:48 WBC 10.4 H (4.0-10.0) x10^3/uL RBC 4.26 (4.00-5.50) x10^6/uL Hgb 13.4 (12.0-16.0) g/dL Hct 38.9 (33.0-47.0) % MCV 91.3 (78.0-93.0) fL MCH 31.5 (26.0-32.0) pg MCHC 34.4 (32.0-36.0) g/dL RDW Coeff of Damaris 14.2 (10.0-15.0) % Plt Count 581 H D (130-400) x10^3/uL Neut % (Auto) 84.4 H (50.0-80.0) % Lymph % (Auto) 8.6 L (25.0-50.0) % [place] % (Auto) 6.5 (2.0-11.0) % Eos % (Auto) 0.3 (0.0-4.0) % Baso % (Auto) 0.2 (0.2-1.2) % Sodium 135 L (136-145) mmol/L Potassium 3.6 (3.5-5.1) mmol/L Chloride 101 (98-107) mmol/L Carbon Dioxide 27 (21-32) mmol/L Anion Gap 10.6 (10-20) mmol/L BUN 12 (7-18) mg/dL Creatinine 0.9 (0.55-1.02) mg/dL Est Cr Clr Drug Dosing TNP Estimated GFR (MDRD) > 60 Glucose 117 H (74-106) mg/dL Lactic Acid 1.0 (0.4-2.0) mmol/L Calcium 8.8 (8.5-10.1) mg/dL Corrected Calcium 9.92 (8.5-10.1) mg/dL Total Bilirubin 0.6 (0.2-1.0) mg/dL AST 15 (15-37) U/L ALT 21 (14-59) U/L Alkaline Phosphatase 61 (46-116) U/L C-Reactive Protein 0.6 (<=0.9) mg/dL Total Protein 7.2 (6.4-8.2) g/dL Albumin 2.6 L (3.4-5.0) g/dL Globulin 4.6 Albumin/Globulin Ratio 0.57 / Range/Units 07:09 WBC (4.0-10.0) x10^3/uL RBC (4.00-5.50) x10^6/uL Hgb (12.0-16.0) g/dL Hct (33.0-47.0) % MCV (78.0-93.0) fL MCH (26.0-32.0) pg MCHC (32.0-36.0) g/dL RDW Coeff of Damaris (10.0-15.0) % Plt Count (130-400) x10^3/uL Neut % (Auto) (50.0-80.0) % Lymph % (Auto) (25.0-50.0) % [place] % (Auto) (2.0-11.0) % Eos % (Auto) (0.0-4.0) % Baso % (Auto) (0.2-1.2) % Sodium 138 (136-145) mmol/L Potassium 3.9 (3.5-5.1) mmol/L Chloride 105 (98-107) mmol/L Carbon Dioxide 29 (21-32) mmol/L Anion Gap 7.9 L (10-20) mmol/L BUN 9 (7-18) mg/dL Creatinine 0.9 (0.55-1.02) mg/dL Est Cr Clr Drug Dosing 40.74 Estimated GFR (MDRD) > 60 Glucose 117 H (74-106) mg/dL Lactic Acid (0.4-2.0) mmol/L Calcium 7.9 L (8.5-10.1) mg/dL Corrected Calcium (8.5-10.1) mg/dL Total Bilirubin (0.2-1.0) mg/dL AST (15-37) U/L ALT (14-59) U/L Alkaline Phosphatase (46-116) U/L C-Reactive Protein (<=0.9) mg/dL Total Protein (6.4-8.2) g/dL Albumin (3.4-5.0) g/dL Globulin Albumin/Globulin Ratio Med Orders - Current: Current Medications Potassium Chloride/Dextrose/Sod Cl (D5 1/2 Ns W/ 20 Meq/L Kcl) 1,000 mls @ 125 mls/hr IV ASDIRECTED MIGUEL A Last Admin: 03/25/18 07:20 Dose: 125 mls/hr Lorazepam (Ativan) 1 mg IVPUSH Q2H PRN PRN Reason: Anxiety Sodium Chloride (Saline Flush) 10 ml FLUSH ASDIRECTED PRN PRN Reason: Keep Vein Open Last Admin: 03/24/18 18:52 Dose: 10 ml Discontinued Medications Sodium Chloride (Normal Saline) 1,000 mls @ 999 mls/hr IV ONETIME ONE Stop: 03/24/18 18:51 Last Admin: 03/24/18 18:52 Dose: 999 mls/hr Lorazepam (Ativan) 1 mg IVPUSH Q1H PRN PRN Reason: Anxiety Last Admin: 03/24/18 22:10 Dose: 1 mg Metoclopramide HCl (Reglan) 10 mg IVPUSH ONETIME ONE Stop: 03/24/18 19:01 Last Admin: 03/24/18 20:09 Dose: Not Given Metoclopramide HCl (Reglan) 10 mg IVPUSH ONETIME ONE Stop: 03/24/18 20:09 Last Admin: 03/24/18 20:31 Dose: 10 mg Ondansetron HCl (Zofran) 4 mg IVPUSH ONETIME ONE Stop: 03/24/18 17:52 Last Admin: 03/24/18 18:52 Dose: 4 mg - Problem List Review Problem List Initiated/Reviewed/Updated: Yes - My Orders Last 24 Hours: My Active Orders 03/24/18 21:30 NG [Gastrointestinal Tube Mgmt] [RC] 08,20 03/24/18 21:33 Code Status [Resuscitation Status] Routine 03/24/18 22:35 Patient Status [ADT] Routine Oxygen Therapy [RC] .PRN VTE/DVT Education [RC] .PRN Vital Signs [RC] 02,06,10,14,18,22 03/24/18 23:10 LORazepam [Ativan] 1 mg IVPUSH Q2H PRN 03/24/18 23:15 D5 1/2 NS w/ 20 mEq/L KCl 1,000 ml IV ASDIRECTED 03/25/18 09:56 Communication Order [RC] ONETIME 03/25/18 Breakfast Nothing per Oral Now Diet [DIET]
[2018-03-25] MEDS ORDERED: D5 1/2 NS w/ 20 mEq/L KCl 1,000 ML IV SCH (15:15)
[2018-03-25] MEDS ORDERED: Acetaminophen 325 MG Tab PO PRN (16:00)
[2018-03-26] MEDS ORDERED: Lisinopril 20 MG Tab PO SCH (08:45)
[2018-03-26] MEDS ORDERED: Sodium Chloride 0.9% 10 ML Syringe FLUSH PRN (09:05)
--- NOTE | 2018-03-26 09:13 | PCM.PN ---
- General Info Date of Service: 03/26/18 Admission Dx/Problem (Free Text): History: Her abdomen was much less distended yesterday with more normal bowel sounds so her NG tube was removed, given clear liquids, IV slowed from 150 down to 75 mL per hour, she tolerated that well, passed lots of gas and a very small amount of stool and felt quite well. She had some liquids this morning and is not particularly hungry yet but would like to advance her diet. Note her lab yesterday was all normal. Exam: -Appears well, VS OK -No respiratory distress -Abdomen is not distended at all although the ventral hernia in RUQ is still present -Bowel sounds are again hollow and somewhat obstructive, and after I put my hand on the RUQ ventral hernia and reduce that and held it, bowel sounds were quite normal Impression: -Partial bowel obstruction, improving -Most likely the event is secondary to her previous bowel surgery, but it is not completely impossible that it is related to her ventral hernia and that small bowel is somehow getting mildly incarcerated in that Plan: -Advance to soft diet -Walk around today -If she tolerates that she would like to go home this evening - Patient Data Vitals - Most Recent: Last Vital Signs Temp 36.4 C 03/26/18 06:00 Pulse 87 03/26/18 06:00 Resp 18 03/26/18 06:00 BP 128/63 03/26/18 06:00 Pulse Ox 94 L 03/26/18 06:00 Weight - Most Recent: 90.718 kg I&O - Last 24 Hours: Intake & Output 03/25/18 03/26/18 03/26/18 22:59 06:59 14:59 Intake Total 1179 306 Output Total 500 700 Balance 679 -394 Med Orders - Current: Current Medications Acetaminophen (Tylenol) 650 mg PO Q4H PRN PRN Reason: Pain Last Admin: 03/25/18 16:36 Dose: 650 mg Potassium Chloride/Dextrose/Sod Cl (D5 1/2 Ns W/ 20 Meq/L Kcl) 1,000 mls @ 25 mls/hr IV ASDIRECTED MIGUEL A Last Admin: 03/25/18 15:15 Dose: 25 mls/hr Levothyroxine Sodium (Levothyroxine) 75 mcg PO ACBREAKFAST MIGUEL A Lisinopril (Prinivil) 20 mg PO DAILY MIGUEL A Lorazepam (Ativan) 1 mg IVPUSH Q2H PRN PRN Reason: Anxiety Last Admin: 03/25/18 21:16 Dose: 1 mg Sertraline HCl (Zoloft) 150 mg PO BEDTIME MIGUEL A Sodium Chloride (Saline Flush) 10 ml FLUSH ASDIRECTED PRN PRN Reason: Keep Vein Open Discontinued Medications Sodium Chloride (Normal Saline) 1,000 mls @ 999 mls/hr IV ONETIME ONE Stop: 03/24/18 18:51 Last Admin: 03/24/18 18:52 Dose: 999 mls/hr Potassium Chloride/Dextrose/Sod Cl (D5 1/2 Ns W/ 20 Meq/L Kcl) 1,000 mls @ 125 mls/hr IV ASDIRECTED MIGUEL A Last Admin: 03/25/18 07:20 Dose: 125 mls/hr Lorazepam (Ativan) 1 mg IVPUSH Q1H PRN PRN Reason: Anxiety Last Admin: 03/24/18 22:10 Dose: 1 mg Metoclopramide HCl (Reglan) 10 mg IVPUSH ONETIME ONE Stop: 03/24/18 19:01 Last Admin: 03/24/18 20:09 Dose: Not Given Metoclopramide HCl (Reglan) 10 mg IVPUSH ONETIME ONE Stop: 03/24/18 20:09 Last Admin: 03/24/18 20:31 Dose: 10 mg Ondansetron HCl (Zofran) 4 mg IVPUSH ONETIME ONE Stop: 03/24/18 17:52 Last Admin: 03/24/18 18:52 Dose: 4 mg Sodium Chloride (Saline Flush) 10 ml FLUSH ASDIRECTED PRN PRN Reason: Keep Vein Open Last Admin: 03/24/18 18:52 Dose: 10 ml - Problem List Review Problem List Initiated/Reviewed/Updated: Yes - My Orders Last 24 Hours: My Active Orders 03/25/18 15:09 NG [Nasogastric Orogastric Tube Removal] [OM.PC] Routine 03/25/18 15:15 D5 1/2 NS w/ 20 mEq/L KCl 1,000 ml IV ASDIRECTED 03/25/18 16:00 Acetaminophen [Tylenol] 650 mg PO Q4H PRN 03/25/18 Dinner Clear Liquid Diet [DIET] 03/26/18 08:45 Lisinopril [Prinivil] 20 mg PO DAILY 03/26/18 09:05 Sodium Chloride 0.9% [Saline Flush] 10 ml FLUSH ASDIRECTED PRN Saline Lock Insert [OM.PC] Routine 03/26/18 20:00 Sertraline [Zoloft] 150 mg PO BEDTIME 03/26/18 Breakfast Soft Diet [DIET] 03/27/18 07:00 Levothyroxine 75 mcg PO ACBREAKFAST
[2018-03-26 16:36] VITALS: BP 135/81
--- NOTE | 2018-03-26 17:55 | PCM.DCSUM1 ---
Discharge Summary - Hospital Course Free Text/Narrative:: Discharge diagnoses: -Partial small bowel obstruction, resolved -RUQ ventral hernia -Hx of R hemicolectomy for previous bowel obstruction Secondary diagnoses: -Osteoporosis -Hypertension, controlled -Hyperlipidemia -Hypothyroidism -Depression, controlled Reason for admission: After 2 visits to the clinic with nausea and infrequent vomiting, she worsened and started vomiting repeatedly and her abdomen was distended. Initial findings: Significant abdominal distention and vomiting bilious material. Upright abdomen showed multiple air-fluid levels in small bowel Obstructive, hollow bowel sounds. No tenderness. . Lab, including WBC, normal. Treatment and course in Hospital: She received IV fluid at 150 mL per hour, had NG suction and over the first 8 hours had 1300 mL of thick greenish return. Her BMP the second hospital day was normal. Her abdomen became no longer distended, and on the a.m. of the second hospital day her tube was clamped and she did well, bowel sounds were quite normal and she had no further vomiting. She started passing gas on the second hospital day, and her NG suction was removed. On the third hospital day she started taking clear liquids, tolerated this, was advanced to small diet. It was noted that she had hollow, obstructive sounds again but after manually reducing her ventral hernia the sounds became more normal. She had small amount of stool and liberal amounts of gas past. On the third hospital day her Zoloft, levothyroxine, and lisinopril were resumed. Condition on discharge: -Heart regular, lungs clear, ambulating independently and cheerful and alert -Abdomen is soft and nontender, no distention but still has the prominent RUQ ventral hernia -Pulse 100, repeat 135/81, temperature 36.8 Discharge plan: -Diet as tolerated -Try manually reducing the hernia if she has problems, keep appointment in 3 days with DANNY Diagnosis: Stroke: No - Discharge Data Discharge Date: 03/26/18 Discharge Disposition: Home, Self-Care 01 Condition: Good - Discharge Plan *PRESCRIPTION DRUG MONITORING PROGRAM REVIEWED*: Not Applicable *COPY OF PRESCRIPTION DRUG MONITORING REPORT IN PATIENT BEATRICE: Not Applicable Home Medications: Home Meds ALPRAZolam [Alprazolam] 0.125 mg PO Q8H PRN 11/02/16 [History] Levothyroxine 75 mcg PO ACBREAKFAST 11/02/16 [History] Lisinopril [Prinivil] 20 mg PO DAILY 11/02/16 [History] Oxybutynin [Oxybutynin ER] 10 mg PO DAILY 11/02/16 [History] Sertraline [Zoloft] 150 mg PO DAILY 11/02/16 [History] Alendronate Sodium [Fosamax] 70 mg PO WEEKLY 03/24/18 [History] Cholecalciferol (Vitamin D3) [Vitamin D3] 2,000 unit PO DAILY 03/24/18 [History] Cyanocobalamin (Vitamin B12) [Vitamin B12] 1,000 mcg PO DAILY 03/24/18 [History] Multivitamin with Minerals [Multiple Vitamin] 1 tab PO DAILY 03/24/18 [History] - Patient Data Vitals - Most Recent: Last Vital Signs Temp 36.8 C 03/26/18 16:35 Pulse 103 H 03/26/18 16:35 Resp 18 03/26/18 16:35 BP 135/81 03/26/18 16:35 Pulse Ox 97 03/26/18 16:35 Weight - Most Recent: 90.718 kg I&O - Last 24 hours: Intake & Output 03/26/18 03/26/18 03/26/18 06:59 14:59 22:59 Intake Total 306 Output Total 700 600 Balance -394 -600 Med Orders - Current: Current Medications Acetaminophen (Tylenol) 650 mg PO Q4H PRN PRN Reason: Pain Last Admin: 03/25/18 16:36 Dose: 650 mg Potassium Chloride/Dextrose/Sod Cl (D5 1/2 Ns W/ 20 Meq/L Kcl) 1,000 mls @ 25 mls/hr IV ASDIRECTED MIGUEL A Last Admin: 03/25/18 15:15 Dose: 25 mls/hr Levothyroxine Sodium (Levothyroxine) 75 mcg PO ACBREAKFAST MIGUEL A Lisinopril (Prinivil) 20 mg PO DAILY MIGUEL A Last Admin: 03/26/18 09:15 Dose: 20 mg Lorazepam (Ativan) 1 mg IVPUSH Q2H PRN PRN Reason: Anxiety Last Admin: 03/25/18 21:16 Dose: 1 mg Sertraline HCl (Zoloft) 150 mg PO BEDTIME MIGUEL A Sodium Chloride (Saline Flush) 10 ml FLUSH ASDIRECTED PRN PRN Reason: Keep Vein Open Discontinued Medications Sodium Chloride (Normal Saline) 1,000 mls @ 999 mls/hr IV ONETIME ONE Stop: 03/24/18 18:51 Last Admin: 03/24/18 18:52 Dose: 999 mls/hr Potassium Chloride/Dextrose/Sod Cl (D5 1/2 Ns W/ 20 Meq/L Kcl) 1,000 mls @ 125 mls/hr IV ASDIRECTED MIGUEL A Last Admin: 03/25/18 07:20 Dose: 125 mls/hr Lorazepam (Ativan) 1 mg IVPUSH Q1H PRN PRN Reason: Anxiety Last Admin: 03/24/18 22:10 Dose: 1 mg Metoclopramide HCl (Reglan) 10 mg IVPUSH ONETIME ONE Stop: 03/24/18 19:01 Last Admin: 03/24/18 20:09 Dose: Not Given Metoclopramide HCl (Reglan) 10 mg IVPUSH ONETIME ONE Stop: 03/24/18 20:09 Last Admin: 03/24/18 20:31 Dose: 10 mg Ondansetron HCl (Zofran) 4 mg IVPUSH ONETIME ONE Stop: 03/24/18 17:52 Last Admin: 03/24/18 18:52 Dose: 4 mg Sodium Chloride (Saline Flush) 10 ml FLUSH ASDIRECTED PRN PRN Reason: Keep Vein Open Last Admin: 03/24/18 18:52 Dose: 10 ml
[2018-03-26] MEDS ORDERED: Sertraline 100 MG Tab PO SCH (20:00)
[2018-03-27] MEDS ORDERED: Levothyroxine 75 MCG Tab PO SCH (07:00)
== END 2018-03-26 18:00 | disposition home or self-care (01) | DRG 395 ==
LOC: VM.ED 17:16 → VM.MS 18:46
PROVIDERS: ADMIT Family Medicine; ATTEND Internal Medicine
DX: K56.609 Unspecified intestinal obstruction, unspecified as to partial versus complete obstruction (principal); K43.6 Other and unspecified ventral hernia with obstruction, without gangrene; E86.0 Dehydration; E78.00 Pure hypercholesterolemia, unspecified; I10 Essential (primary) hypertension; E78.5 Hyperlipidemia, unspecified; E03.9 Hypothyroidism, unspecified; F41.9 Anxiety disorder, unspecified; K43.9 Ventral hernia without obstruction or gangrene; M19.90 Unspecified osteoarthritis, unspecified site; F32.9 Major depressive disorder, single episode, unspecified; R32 Unspecified urinary incontinence; M81.0 Age-related osteoporosis without current pathological fracture; Z90.49 Acquired absence of other specified parts of digestive tract; Z79.899 Other long term (current) drug therapy; Z87.01 Personal history of pneumonia (recurrent)
CPT/HCPCS: 36415; 74019; 80048; 80053; 83605; 85025; 86140; 96361; 96374; 99285; A9270-GY; J2060; J2405; J2765; J3480; J7030; J7050

== ENCOUNTER 2018-09-17 14:30 | Emergency (ER) | payer MEDICARE ==
[2018-09-17 14:44] VITALS: BP 112/67
--- NOTE | 2018-09-17 14:55 | EDM.PDOC ---
ED HPI GENERAL MEDICAL PROBLEM - General Chief Complaint: Lower Extremity Injury/Pain Stated Complaint: R HIP PAIN Time Seen by Provider: 09/17/18 14:30 Source of Information: Reports: Patient - History of Present Illness INITIAL COMMENTS - FREE TEXT/NARRATIVE: Patient comes into the emergency department with complaint of sciatica on the right leg. Patient was diagnosed with sciatica on Tuesday by her primary care provider which was 7 days ago. At that time and she is given Tizanidine and instructed to use ice and heat and take Tylenol as needed for pain. Patient was feeling good then by Tuesday. She was having minimal pain and decided to go get her hair done. Shortly after coming home from her hair appointment she had a significant amount of discomfort and pain again in the right hip region again with shooting sensations down the front of her thigh. She states that since then she's been unable to maintain her discomfort. She also ran out of Tylenol on Tuesday and has only been taking the Tizanidine. Patient denies any new injury , she denies worsening symptoms. Denies any CMS or range of motion changes, nausea, vomiting, diarrhea, chest pain, or dizziness. 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) Right Leg Pain Score (Numeric/FACES): 8 - Related Data Allergies Allergy/AdvReac Type Severity Reaction Status Date / Time No Known Allergies Allergy Verified 09/17/18 14:41 Home Meds: Home Meds ALPRAZolam [Alprazolam] 0.125 mg PO Q8H PRN 11/02/16 [History] Levothyroxine 75 mcg PO ACBREAKFAST 11/02/16 [History] Lisinopril [Prinivil] 10 mg PO DAILY 11/02/16 [History] Oxybutynin [Oxybutynin ER] 10 mg PO DAILY 11/02/16 [History] Sertraline [Zoloft] 150 mg PO DAILY 11/02/16 [History] Alendronate Sodium [Fosamax] 70 mg PO WEEKLY 03/24/18 [History] Multivitamin with Minerals [Multiple Vitamin] 1 tab PO DAILY 03/24/18 [History] tiZANidine [Zanaflex] 2 mg PO Q8H PRN 09/17/18 [History] Past Medical History HEENT History: Reports: None Cardiovascular History: Reports: High Cholesterol, Hypertension Respiratory History: Reports: None Gastrointestinal History: Reports: None Genitourinary History: Reports: Urinary Incontinence Musculoskeletal History: Reports: Arthritis, Osteoporosis Neurological History: Reports: None Psychiatric History: Reports: Anxiety Endocrine/Metabolic History: Reports: Hypothyroidism Hematologic History: Reports: None Immunologic History: Reports: None Oncologic (Cancer) History: Reports: None Dermatologic History: Reports: None - Infectious Disease History Infectious Disease History: Reports: None - Past Surgical History GI Surgical History: Reports: Colon Other GI Surgeries/Procedures: colon surgery bulge Female Surgical History: Reports: Section, Hysterectomy, Other (See Below) Social & Family History - Family History Family Medical History: Noncontributory Cardiac: Reports: Hypertension Respiratory: Reports: COPD Psychiatric: Reports: Anxiety Endocrine/Metabolic: Reports: Diabetes, type II Oncologic: Reports: Prostate - Caffeine Use Caffeine Use: Reports: Coffee - Living Situation & Occupation Living situation: Reports: , with Significant Other Occupation: Retired Review of Systems - Review of Systems Review Of Systems: See Below Constitutional: Reports: No Symptoms Eyes: Reports: No Symptoms Ears: Reports: No Symptoms Nose: Reports: No Symptoms Mouth/Throat: Reports: No Symptoms Respiratory: Reports: No Symptoms Cardiovascular: Reports: No Symptoms GI/Abdominal: Reports: No Symptoms Genitourinary: Reports: No Symptoms Musculoskeletal: Reports: Leg Pain Skin: Reports: No Symptoms Neurological: Reports: No Symptoms Psychiatric: Reports: No Symptoms ED EXAM, GENERAL - Physical Exam Exam: See Below Exam Limited By: No Limitations General Appearance: Alert, WD/WN, No Apparent Distress Neck: Normal Inspection, Supple, Non-Tender, Full Range of Motion Respiratory/Chest: No Respiratory Distress, No Accessory Muscle Use Cardiovascular: Normal Peripheral Pulses, Regular Rate, Rhythm Peripheral Pulses: 2+: Radial (L), Radial (R), Dorsalis Pedis (L), Dorsalis Pedis (R) Back Exam: Normal Inspection, Full Range of Motion, Muscle Spasm Extremities: Normal Inspection, Normal Range of Motion, No Pedal Edema, Normal Capillary Refill, Other (tenderness right lower back into right leg. No redness , swelling, warmth or ecchymosis noted) Neurological: Alert, Oriented Psychiatric: Normal Affect, Normal Mood Skin Exam: Warm, Dry, Normal Color Course - Vital Signs Last Recorded V/S: Last Vital Signs Temp 36.2 C 09/17/18 14:43 Pulse 78 09/17/18 14:43 Resp 16 09/17/18 14:43 BP 112/67 09/17/18 14:43 Pulse Ox 95 09/17/18 14:43 - Orders/Labs/Meds Orders: Active Orders 24 hr Category Date Time Status Ketorolac [Toradol] Med 09/17/18 14:49 Once 30 mg IM ONETIME ONE Orphenadrine [Norflex] Med 09/17/18 15:00 Ordered 60 mg IM Q12H Departure - Departure Time of Disposition: 15:20 Disposition: Home, Self-Care 01 Condition: Good Clinical Impression: Sciatic leg pain - Discharge Information *PRESCRIPTION DRUG MONITORING PROGRAM REVIEWED*: Not Applicable *COPY OF PRESCRIPTION DRUG MONITORING REPORT IN PATIENT BEATRICE: Not Applicable Instructions: Pain Medicine Instructions, [id number], Sciatica Additional Instructions: 1. rest 2. Continue to take your Tizanidine as needed for muscle pain 3. Can take over the counter Tylenol and ibuprofen as needed for pain and discomfort 4. Can use massage therapy, physical therapy, or health careers instructor to help with the relief of the sciatica pain 5. Activity and diet as tolerated however it is recommended that you slowly increase your amount of activity to help reduce the flare ups 6. Follow-up with PCP as needed 7. Call with any questions or concerns - Problem List Review Problem List Initiated/Reviewed/Updated: Yes - My Orders Last 24 Hours: My Active Orders 09/17/18 14:49 Ketorolac [Toradol] 30 mg IM ONETIME ONE 09/17/18 15:00 Orphenadrine [Norflex] 60 mg IM Q12H - Assessment/Plan Last 24 Hours: My Active Orders 09/17/18 14:49 Ketorolac [Toradol] 30 mg IM ONETIME ONE 09/17/18 15:00 Orphenadrine [Norflex] 60 mg IM Q12H Assessment:: 1. Lower leg pain related to sciatica Plan: 1. Toradol IM given in ER 2. Norflex IM given in ER 3. Pt advised to continue to take OTC medication pain relief with the Tizanidine. 4. Pt is encouraged to go to massage therapy, physical therapy, or chiropractor care to help with sciatica 5. All questions and concerns addressed prior to discharge
[2018-09-17] MEDS: Ketorolac 30 MG/ML SDV IM ONE ×2 (15:01→15:08)
[2018-09-17] MEDS ORDERED: Ketorolac 30 MG/ML SDV ONE (15:01)
== END 2018-09-17 15:25 | disposition home or self-care (01) ==
LOC: VM.ED 14:30
DX: M54.32 Sciatica, left side (principal); E78.00 Pure hypercholesterolemia, unspecified; I10 Essential (primary) hypertension; E03.9 Hypothyroidism, unspecified; Z79.899 Other long term (current) drug therapy
CPT/HCPCS: 96374; 96375; 99283; J1885; J2360

== ENCOUNTER 2019-01-20 12:30 | Emergency (ER) | payer MEDICARE, SELFPAY ==
[2019-01-20] MEDS ORDERED: Sodium Chloride 0.9% 500 ML IV ONE (13:22)
[2019-01-20] MEDS ORDERED: Ondansetron 4 MG/2 ML SDV IVPUSH ONE (13:22)
[2019-01-20] MEDS ORDERED: Sodium Chloride 0.9% 10 ML Syringe FLUSH PRN (13:22)
[2019-01-20 13:39] LABS: CHLORIDE,CL 103 mmol/L (98-107); SODIUM,NA 137 mmol/L (136-145)
[2019-01-20 13:40] LABS: ANION GAP 13.2 mmol/L (10-20)
--- NOTE | 2019-01-20 14:06 | EDM.PDOC ---
ED HPI GENERAL MEDICAL PROBLEM - General Chief Complaint: General Stated Complaint: NAUSEA,VOMITING,DIARRHEA Time Seen by Provider: 01/20/19 12:45 Source of Information: Reports: Patient History Limitations: Reports: No Limitations - History of Present Illness INITIAL COMMENTS - FREE TEXT/NARRATIVE: Patient comes into the emergency department with complaint of abdominal pain, nausea, vomiting. Patient states that her abdominal pain, nausea, vomiting started approximately one day ago. She states there is a night she had a ribs and corn for supper. Approximately 5 hours after that she became ill. She states that she had a significant amount of nausea and vomiting and over the course of last day she has decreased her oral intake due to the nausea. She also states that she has generalized abdominal discomfort throughout her entire abdomen. She denies any diarrhea or constipation. The vomiting has been greater than 10 times in a day. Patient does have an extensive hernia that has been fairly stable and has been followed up by her PCP. She does not feel anything is changed regarding that. She also denies any fever, chest pain, shortness of breath, or peripheral edema. Onset: Sudden, Gradual Location: Reports: Abdomen Quality: Reports: Pressure, Sharp Severity: Moderate Worsens with: Reports: None Associated Symptoms: Reports: No Other Symptoms - Related Data Allergies Allergy/AdvReac Type Severity Reaction Status Date / Time No Known Allergies Allergy Verified 09/17/18 14:41 Home Meds: Home Meds ALPRAZolam [Alprazolam] 0.125 mg PO Q8H PRN 11/02/16 [History] Levothyroxine 75 mcg PO ACBREAKFAST 11/02/16 [History] Lisinopril [Prinivil] 10 mg PO DAILY 11/02/16 [History] Oxybutynin [Oxybutynin ER] 10 mg PO DAILY 11/02/16 [History] Sertraline [Zoloft] 150 mg PO DAILY 11/02/16 [History] Alendronate Sodium [Fosamax] 70 mg PO WEEKLY 03/24/18 [History] Multivitamin with Minerals [Multiple Vitamin] 1 tab PO DAILY 03/24/18 [History] tiZANidine [Zanaflex] 2 mg PO Q8H PRN 09/17/18 [History] Past Medical History HEENT History: Reports: None Cardiovascular History: Reports: High Cholesterol, Hypertension Respiratory History: Reports: None Gastrointestinal History: Reports: None Genitourinary History: Reports: Urinary Incontinence Musculoskeletal History: Reports: Arthritis, Osteoporosis Neurological History: Reports: None Psychiatric History: Reports: Anxiety Endocrine/Metabolic History: Reports: Hypothyroidism Hematologic History: Reports: None Immunologic History: Reports: None Oncologic (Cancer) History: Reports: None Dermatologic History: Reports: None - Infectious Disease History Infectious Disease History: Reports: None - Past Surgical History GI Surgical History: Reports: Colon Other GI Surgeries/Procedures: colon surgery bulge Female Surgical History: Reports: Section, Hysterectomy, Other (See Below) Social & Family History - Family History Family Medical History: Noncontributory Cardiac: Reports: Hypertension Respiratory: Reports: COPD Psychiatric: Reports: Anxiety Endocrine/Metabolic: Reports: Diabetes, type II Oncologic: Reports: Prostate - Caffeine Use Caffeine Use: Reports: Coffee - Living Situation & Occupation Living situation: Reports: , with Significant Other Occupation: Retired ED ROS GENERAL - Review of Systems Review Of Systems: ROS reveals no pertinent complaints other than HPI. Constitutional: Reports: No Symptoms HEENT: Reports: No Symptoms Respiratory: Reports: No Symptoms Cardiovascular: Reports: No Symptoms GI/Abdominal: Reports: Abdominal Pain, Nausea : Reports: No Symptoms Musculoskeletal: Reports: No Symptoms Skin: Reports: No Symptoms Neurological: Reports: No Symptoms Psychiatric: Reports: No Symptoms Hematologic/Lymphatic: Reports: No Symptoms ED EXAM, GENERAL - Physical Exam Exam: See Below Exam Limited By: No Limitations General Appearance: Alert, WD/WN, No Apparent Distress Nose: Normal Inspection, Normal Mucosa Throat/Mouth: Normal Inspection, Normal Oropharynx, Normal Voice Head: Atraumatic, Normocephalic Neck: Normal Inspection, Supple, Non-Tender Respiratory/Chest: No Respiratory Distress, Lungs Clear, No Accessory Muscle Use Cardiovascular: Normal Peripheral Pulses, Regular Rate, Rhythm, No Edema GI/Abdominal: Rebound, Tender, Abnormal Bowel Sounds, Hernia, Mass Extremities: Normal Inspection, Normal Range of Motion, Non-Tender Neurological: Alert, Oriented, CN II-XII Intact, Normal Gait Psychiatric: Normal Affect, Normal Mood Skin Exam: Warm, Dry, Intact, Normal Color Course - Vital Signs Last Recorded V/S: Last Vital Signs Temp 36.0 C 01/20/19 12:35 Pulse 95 01/20/19 15:04 Resp 16 01/20/19 15:04 BP 122/68 01/20/19 15:04 Pulse Ox 96 01/20/19 15:04 - Orders/Labs/Meds Orders: Active Orders 24 hr Category Date Time Status UA RFX KATE AND CULT IF INDIC [URIN] Stat Lab 01/20/19 13:39 Ordered Sodium Chloride 0.9% [Normal Saline] 1,000 ml Med 01/20/19 14:30 Active IV ASDIRECTED Sodium Chloride 0.9% [Saline Flush] Med 01/20/19 13:22 Active 10 ml FLUSH ASDIRECTED PRN Peripheral IV Insertion Adult [OM.PC] Stat Oth 01/20/19 13:22 Ordered Medication Orders Sodium Chloride (Normal Saline) 1,000 mls @ 500 mls/hr IV ASDIRECTED MIGUEL A Last Admin: 01/20/19 13:49 Dose: 500 mls/hr Sodium Chloride (Saline Flush) 10 ml FLUSH ASDIRECTED PRN PRN Reason: Keep Vein Open Labs: Laboratory Tests 01/20/19 01/20/19 Range/Units 13:10 13:10 WBC 11.0 H (4.0-10.0) x10^3/uL RBC 4.65 (4.00-5.50) x10^6/uL Hgb 14.2 (12.0-16.0) g/dL Hct 41.9 (33.0-47.0) % MCV 90.1 (78.0-93.0) fL MCH 30.5 (26.0-32.0) pg MCHC 33.9 (32.0-36.0) g/dL RDW Coeff of Damaris 14.0 (10.0-15.0) % Plt Count 416 H D (130-400) x10^3/uL Neut % (Auto) 83.5 H (50.0-80.0) % Lymph % (Auto) 10.4 L (25.0-50.0) % Hutchinson % (Auto) 5.6 (2.0-11.0) % Eos % (Auto) 0.4 (0.0-4.0) % Baso % (Auto) 0.1 L (0.2-1.2) % Sodium 137 (136-145) mmol/L Potassium 4.2 (3.5-5.1) mmol/L Chloride 103 (98-107) mmol/L Carbon Dioxide 25 (21-32) mmol/L Anion Gap 13.2 (10-20) mmol/L BUN 25 H (7-18) mg/dL Creatinine 0.9 (0.55-1.02) mg/dL Est Cr Clr Drug Dosing TNP Estimated GFR (MDRD) > 60 Glucose 128 H (74-106) mg/dL Calcium 8.5 (8.5-10.1) mg/dL Corrected Calcium 9.78 (8.5-10.1) mg/dL Total Bilirubin 0.8 (0.2-1.0) mg/dL AST 16 (15-37) U/L ALT 18 (14-59) U/L Alkaline Phosphatase 63 (46-116) U/L Total Protein 7.6 (6.4-8.2) g/dL Albumin 2.4 L (3.4-5.0) g/dL Globulin 5.2 Albumin/Globulin Ratio 0.46 Meds: Medications Generic Name Dose Route Start Last Admin Trade Name Fredaphne PRN Reason Stop Dose Admin Sodium Chloride 1,000 mls @ 500 mls/hr 01/20/19 14:30 01/20/19 13:49 Normal Saline IV 500 mls/hr ASDIRECTED MIGUEL A Administration Sodium Chloride 10 ml 01/20/19 13:22 Saline Flush FLUSH ASDIRECTED PRN Keep Vein Open Discontinued Medications Generic Name Dose Route Start Last Admin Trade Name Freq PRN Reason Stop Dose Admin Hydromorphone HCl 0.25 mg 01/20/19 14:10 01/20/19 14:15 Dilaudid IVPUSH 01/20/19 14:11 0.25 mg ONETIME ONE Administration Hydromorphone HCl 0.25 mg 01/20/19 15:07 01/20/19 15:16 Dilaudid IVPUSH 01/20/19 15:08 0.25 mg ONETIME ONE Administration Sodium Chloride 500 mls @ 500 mls/hr 01/20/19 13:22 Normal Saline IV 01/20/19 14:21 ONETIME ONE Ondansetron HCl 4 mg 01/20/19 13:22 01/20/19 13:45 Zofran IVPUSH 01/20/19 13:23 4 mg ONETIME ONE Administration Departure - Departure Time of Disposition: 14:40 Disposition: DC/Tfer to Acute Hospital 02 Condition: Good Clinical Impression: Small bowel edema, Small bowel obstruction, Hiatus hernia with obstruction - Discharge Information *PRESCRIPTION DRUG MONITORING PROGRAM REVIEWED*: Not Applicable *COPY OF PRESCRIPTION DRUG MONITORING REPORT IN PATIENT BEATRICE: Not Applicable Referrals: Kristy Steven DO [Primary Care Provider] - Forms: ED Department Discharge, Interfacility Transfer EMTALA - My Orders Last 24 Hours: My Active Orders 01/20/19 13:22 Sodium Chloride 0.9% [Saline Flush] 10 ml FLUSH ASDIRECTED PRN Peripheral IV Insertion Adult [OM.PC] Stat 01/20/19 13:39 UA RFX KATE AND CULT IF INDIC [URIN] Stat 01/20/19 14:30 Sodium Chloride 0.9% [Normal Saline] 1,000 ml IV ASDIRECTED - Assessment/Plan Last 24 Hours: My Active Orders 01/20/19 13:22 Sodium Chloride 0.9% [Saline Flush] 10 ml FLUSH ASDIRECTED PRN Peripheral IV Insertion Adult [OM.PC] Stat 01/20/19 13:39 UA RFX KATE AND CULT IF INDIC [URIN] Stat 01/20/19 14:30 Sodium Chloride 0.9% [Normal Saline] 1,000 ml IV ASDIRECTED Assessment:: 1. abdominal pain 2. Small bowel obstruction 3. Large hiatus hernia with stomach and small and large bowel loops 3. Choletithiasis Plan: 1. Labs completed in ER. Results reviewed with the patient 2. CT scan completed. Results reviewed with the patient 3. IV fluids and zofran given. 4. Dilaudid given with relief. 5. Ct results called to cutler at [phone]. Staff will call back with Dr. Greene when he has viewed images 6. Patient is updated and patient will be transferred via ambulance for surgical and medical management. 7. All questions and concerns addressed prior to transfer.
[2019-01-20] MEDS ORDERED: HYDROmorphone 1 MG/ML Syringe IVPUSH ONE ×2 (14:10→15:07)
--- NOTE | 2019-01-20 14:13 | CT ---
[id number] CT/CT Abdomen Pelvis WO IV EXAM: ABDOMEN AND PELVIS CT WITHOUT CONTRAST INDICATION: Abdominal pain, nausea and vomiting. COMPARISON: March 09, 2018. DISCUSSION: The small bowel is dilated to 3.2 cm and there is relative decompression of the colon consistent with bowel obstruction. There is a large bilobed ventral abdominal wall hernia containing colon and small bowel loops some which are obstructed and some which are not obstructed and there is a large hiatus hernia which is partially imaged which contains much of the stomach, unobstructed large bowel and some unobstructed small bowel loops. Additionally there is a bowel anastomosis in the right mid abdomen. The exact site of transition is not clearly defined. There is mild associated mesenteric edema and a small volume of ascites in the abdomen and pelvis. Bilateral renal cysts measuring up to 2.7 cm on the right and 3.2 cm on the left. 3 mm nonobstructing left renal calculus. The appendix is not seen and is likely surgically absent. Colonic diverticula without evidence of diverticulitis. Small fat-containing bilateral inguinal hernias. Unenhanced images of the liver, spleen, pancreas, and adrenal glands are unremarkable. Cholelithiasis without CT evidence of acute cholecystitis. Degenerative changes throughout the spine. IMPRESSION: 1. Small bowel dilation with associated mesenteric edema and small ascites compatible with bowel obstruction. The exact site of obstruction is not clearly defined, but likely relates to a right mid abdomen bowel anastomosis or a ventral abdominal wall hernia which contains multiple loops of small and large bowel. Some of the small bowel loops within the ventral hernia are obstructed. 2. Large hiatus hernia containing stomach and small and large bowel loops, partially characterized. 3. Cholelithiasis. Russel Dickinson MD 01/20/19 [id number] Thank you for allowing us to participate in the care of your patient.
[2019-01-20] MEDS ORDERED: Sodium Chloride 0.9% 1,000 ML IV SCH (14:30)
[2019-01-20 15:04] VITALS: BP 122/68; PULSE 95
== END 2019-01-20 15:15 | disposition short-term general hospital (02) ==
LOC: VM.ED 12:30
DX: K80.20 Calculus of gallbladder without cholecystitis without obstruction (principal); K44.0 Diaphragmatic hernia with obstruction, without gangrene; I10 Essential (primary) hypertension; M19.90 Unspecified osteoarthritis, unspecified site; E03.9 Hypothyroidism, unspecified; F41.9 Anxiety disorder, unspecified; Z79.899 Other long term (current) drug therapy; Z90.710 Acquired absence of both cervix and uterus
CPT/HCPCS: 74176; 80053; 85025; 96365; 96375; 96376; 99284; J1170; J2405; J7030

== ENCOUNTER 2019-04-01 10:07 | Emergency (ER) | payer MEDICARE ==
--- NOTE | 2019-04-01 10:29 | EDM.PDOC ---
ED HPI GENERAL MEDICAL PROBLEM - General Chief Complaint: General Stated Complaint: gerneral Time Seen by Provider: 04/01/19 10:15 Source of Information: Reports: Patient History Limitations: Reports: No Limitations - History of Present Illness INITIAL COMMENTS - FREE TEXT/NARRATIVE: Patient comes to the emergency department by EMS after she uses [employer] for a fall. Patient denies any injuries or concerns she states she got dizzy while trying to get her breakfast made and slowly assisted herself to the floor however she could not get back up. She denies any discomfort or getting hurt she did not want to be transported by EMS however they recommended transportation and further evaluations of the patient states that she did agree. Patient denies any injury, pain, chest pain, headache, dizziness, lightheadedness, blurred vision, changes in vision, nausea, vomiting, loss of urinary control, loss of bowel control, or peripheral edema. Patient states she feels like she is at her baseline. Has no concerns or complaints Onset: Sudden Location: Reports: Other Improves with: Reports: None Worsens with: Reports: None Associated Symptoms: Reports: No Other Symptoms - Related Data Allergies Allergy/AdvReac Type Severity Reaction Status Date / Time No Known Allergies Allergy Verified 09/17/18 14:41 Home Meds: Home Meds ALPRAZolam [Alprazolam] 0.125 mg PO Q8H PRN 11/02/16 [History] Levothyroxine 75 mcg PO ACBREAKFAST 11/02/16 [History] Lisinopril [Prinivil] 10 mg PO DAILY 11/02/16 [History] Oxybutynin [Oxybutynin ER] 10 mg PO DAILY 11/02/16 [History] Sertraline [Zoloft] 150 mg PO DAILY 11/02/16 [History] Alendronate Sodium [Fosamax] 70 mg PO WEEKLY 03/24/18 [History] Multivitamin with Minerals [Multiple Vitamin] 1 tab PO DAILY 03/24/18 [History] tiZANidine [Zanaflex] 2 mg PO Q8H PRN 09/17/18 [History] Past Medical History HEENT History: Reports: None Cardiovascular History: Reports: High Cholesterol, Hypertension Respiratory History: Reports: None Gastrointestinal History: Reports: None Genitourinary History: Reports: Urinary Incontinence Musculoskeletal History: Reports: Arthritis, Osteoporosis Neurological History: Reports: None Psychiatric History: Reports: Anxiety Endocrine/Metabolic History: Reports: Hypothyroidism Hematologic History: Reports: None Immunologic History: Reports: None Oncologic (Cancer) History: Reports: None Dermatologic History: Reports: None - Infectious Disease History Infectious Disease History: Reports: None - Past Surgical History GI Surgical History: Reports: Colon Other GI Surgeries/Procedures: colon surgery bulge Female Surgical History: Reports: Section, Hysterectomy, Other (See Below) Social & Family History - Family History Family Medical History: Noncontributory Cardiac: Reports: Hypertension Respiratory: Reports: COPD Psychiatric: Reports: Anxiety Endocrine/Metabolic: Reports: Diabetes, type II Oncologic: Reports: Prostate - Caffeine Use Caffeine Use: Reports: Coffee - Living Situation & Occupation Living situation: Reports: , with Significant Other Occupation: Retired ED ROS GENERAL - Review of Systems Review Of Systems: ROS reveals no pertinent complaints other than HPI. Constitutional: Reports: No Symptoms HEENT: Reports: No Symptoms Respiratory: Reports: No Symptoms Cardiovascular: Reports: No Symptoms Endocrine: Reports: No Symptoms GI/Abdominal: Reports: No Symptoms : Reports: No Symptoms Musculoskeletal: Reports: No Symptoms Skin: Reports: No Symptoms Neurological: Reports: No Symptoms Psychiatric: Reports: No Symptoms Hematologic/Lymphatic: Reports: No Symptoms ED EXAM, GENERAL - Physical Exam Exam: See Below Exam Limited By: No Limitations General Appearance: Alert, WD/WN, Moderate Distress Eye Exam: Bilateral Eye: EOMI, PERRL Ears: Normal External Exam, Normal Canal, Hearing Grossly Normal, Normal TMs Ear Exam: Bilateral Ear: Auricle Normal, Canal Normal, TM normal Nose: Normal Inspection, Normal Mucosa, No Blood Throat/Mouth: Normal Inspection, Normal Lips, Normal Oropharynx, No Airway Compromise Head: Atraumatic, Normocephalic Neck: Normal Inspection, Supple, Non-Tender, Full Range of Motion Respiratory/Chest: No Respiratory Distress, Lungs Clear, Normal Breath Sounds, No Accessory Muscle Use, Chest Non-Tender Cardiovascular: Normal Peripheral Pulses, Regular Rate, Rhythm, No Edema, No Murmur, No Rub Peripheral Pulses: 3+: Radial (L), Radial (R), Dorsalis Pedis (L), Dorsalis Pedis (R) GI/Abdominal: Normal Bowel Sounds, Soft, Non-Tender, No Distention, No Abnormal Bruit, No Mass Back Exam: Normal Inspection, Full Range of Motion Extremities: Normal Inspection, Normal Range of Motion, Non-Tender, No Pedal Edema, Normal Capillary Refill Neurological: Alert, Oriented, CN II-XII Intact, Normal Cognition, Normal Gait, Normal Reflexes Psychiatric: Normal Affect, Normal Mood Skin Exam: Warm, Dry, Intact, Normal Color, No Rash Departure - Departure Time of Disposition: 11:00 Disposition: Home, Self-Care 01 Condition: Good Clinical Impression: Fall Qualifiers: Encounter type: initial encounter Qualified Code(s): W19.XXXA - Unspecified fall, initial encounter - Discharge Information *PRESCRIPTION DRUG MONITORING PROGRAM REVIEWED*: Not Applicable *COPY OF PRESCRIPTION DRUG MONITORING REPORT IN PATIENT BEATRICE: Not Applicable Instructions: Fall Prevention in the Home, Adult, [id number] Forms: ED Department Discharge Additional Instructions: 1. make sure you rise slowly from the lying or seated position 2. Try and eat breakfast or a small snack after waking in the am 3. Ensure you are using your walker for mobility 4. Follow up as needed 5. Call with any questions or concerns. - Assessment/Plan Assessment:: 1. fall without injury Plan: 1. Breakfast was given to the patient while in the ER. 2. Pt continues to have no concerns or complaints and does not want any further medical treatment. Pt was up ambulating with family present who state they feel the patient is safe for discharge as well. 3. Education was provided o the patient to take it slow in the mornings when waking up and ensure she gets something to eat upon waking and not waiting till later in the am to prevent dehydration or hypoglycemia. 4. Pt verbalizes understanding and education provided regarding activity, diet, and follow up care 5. All questions and concerns addressed prior to discharge.
[2019-04-01 12:24] VITALS: BP 188/70; PULSE 84
== END 2019-04-01 11:15 | disposition home or self-care (01) ==
LOC: VM.ED 10:07
DX: R42 Dizziness and giddiness (principal); I10 Essential (primary) hypertension; E03.9 Hypothyroidism, unspecified; F41.9 Anxiety disorder, unspecified; Z79.899 Other long term (current) drug therapy; Z79.890 Hormone replacement therapy; W19.XXXA Unspecified fall, initial encounter; Y92.89 Other specified places as the place of occurrence of the external cause
CPT/HCPCS: 99283-GF; 99284

== ENCOUNTER 2022-12-20 15:12 | Inpatient (IN) | payer MEDICARE ==
[2022-12-20] MEDS ORDERED: Acetaminophen 325 MG Tab PO PRN (15:57)
[2022-12-20] MEDS ORDERED: Ondansetron 4 MG Tab.DIS PO PRN ×2 (15:57→17:08)
[2022-12-20] MEDS ORDERED: Aluminum Hydroxide/Magnesium Hydroxide/Simethicone Susp 30 ML Cup PO PRN (17:08)
[2022-12-20] MEDS ORDERED: Hydrocortisone 1% Crm 30 GM Tube TOP PRN (17:08)
[2022-12-20] MEDS ORDERED: LORazepam 0.5 MG Tab PO PRN (17:08)
[2022-12-20] MEDS: cefTRIAXone 1 GM Vial IVPUSH SCH (17:24)
[2022-12-20] MEDS ORDERED: Cyclobenzaprine 10 MG Tab PO PRN (17:57)
[2022-12-20] MEDS: Sennosides/Docusate Sodium 50-8.6 MG Tab PO SCH (20:35)
[2022-12-20] MEDS: QUEtiapine 25 MG Tab PO SCH (20:35)
[2022-12-20] MEDS: Famotidine 20 MG Tab PO SCH (20:35)
[2022-12-20] MEDS ORDERED: Oxybutynin 5 MG Tab.ER PO SCH (21:00)
[2022-12-21] MEDS: Levothyroxine 75 MCG Tab PO SCH (06:33)
[2022-12-21] MEDS: Omeprazole 20 MG Cap.CR PO SCH (06:33)
[2022-12-21 06:54] LABS: BASOPHILS PERCENT AUTO 0.5 % (0.2-1.2); EOSINOPHILS ABSOLUTE AUTO 0.2 x10^3/uL (0.0-0.5); EOSINOPHILS PERCENT AUTO 1.7 % (0.0-4.0); HEMATOCRIT 42.2 % (33.0-47.0); HEMOGLOBIN 14.2 g/dL (12.0-16.0); IMMATURE GRAN ABSOLUTE AUTO 0.01 x10^3/uL (0.00-0.07); LYMPHOCYTES ABSOLUTE AUTO 1.8 x10^3/uL (1.0-4.8); LYMPHOCYTES PERCENT AUTO 21.2 % (25.0-50.0); MEAN CORPUSCULAR HEMOGLOBIN 31.1 pg (26.0-32.0); MEAN CORPUSCULAR HGB CONC 33.6 g/dL (32.0-36.0); MEAN CORPUSCULAR VOLUME 92.3 fL (78.0-93.0); MONOCYTES ABSOLUTE AUTO 0.9 x10^3/uL (0.0-0.8); NEUTROPHILS ABSOLUTE AUTO 5.7 x10^3/uL (1.8-7.7); NEUTROPHILS PERCENT AUTO 66.5 % (50.0-80.0); PLATELET COUNT,PLT 507 x10^3/uL (130-400); RED BLOOD CELL COUNT 4.57 x10^6/uL (4.00-5.50); WHITE BLOOD CELL COUNT,WBC 8.6 x10^3/uL (4.0-10.0)
[2022-12-21 07:09] LABS: ANION GAP 11.2 mmol/L (5-15); CALCIUM 9.1 mg/dL (8.5-10.1); CREATININE 0.9 mg/dL (0.55-1.02); EST CRCL DRUG DOSING (CG) 39.18 mL/min; POTASSIUM,K 4.2 mmol/L (3.5-5.1)
[2022-12-21] MEDS: Famotidine 20 MG Tab PO SCH ×2 (08:33→20:46)
[2022-12-21] MEDS: Sertraline 100 MG Tab PO SCH (08:34)
[2022-12-21] MEDS: Sennosides/Docusate Sodium 50-8.6 MG Tab PO SCH ×2 (08:35→20:45)
[2022-12-21] MEDS: Lisinopril 10 MG Tab PO SCH (08:35)
[2022-12-21] MEDS: buPROPion 150 MG Tab.ER PO SCH (08:36)
[2022-12-21] MEDS: QUEtiapine 25 MG Tab PO SCH ×2 (08:36→20:43)
[2022-12-21] MEDS: cefTRIAXone 1 GM Vial IVPUSH SCH (17:48)
[2022-12-21] MEDS: Oxybutynin 5 MG Tab.ER PO SCH (20:45)
[2022-12-22] MEDS: Levothyroxine 75 MCG Tab PO SCH (06:29)
[2022-12-22] MEDS: Omeprazole 20 MG Cap.CR PO SCH (06:29)
[2022-12-22] MEDS: QUEtiapine 25 MG Tab PO SCH ×2 (08:08→20:20)
[2022-12-22] MEDS: Sennosides/Docusate Sodium 50-8.6 MG Tab PO SCH ×2 (08:09→20:20)
[2022-12-22] MEDS: Famotidine 20 MG Tab PO SCH ×2 (08:09→20:20)
[2022-12-22] MEDS: buPROPion 150 MG Tab.ER PO SCH (08:09)
[2022-12-22] MEDS: Lisinopril 10 MG Tab PO SCH ×2 (08:10→10:22)
[2022-12-22] MEDS: Sertraline 100 MG Tab PO SCH (08:13)
[2022-12-22] MEDS: cefTRIAXone 1 GM Vial IVPUSH SCH (17:30)
[2022-12-22] MEDS: Oxybutynin 5 MG Tab.ER PO SCH (20:20)
[2022-12-23] MEDS: Levothyroxine 75 MCG Tab PO SCH (06:35)
[2022-12-23] MEDS: Omeprazole 20 MG Cap.CR PO SCH (06:35)
[2022-12-23 06:55] LABS: HEMATOCRIT 41.6 % (33.0-47.0); HEMOGLOBIN 13.8 g/dL (12.0-16.0); MEAN CORPUSCULAR HEMOGLOBIN 30.7 pg (26.0-32.0); MEAN CORPUSCULAR HGB CONC 33.2 g/dL (32.0-36.0); MEAN CORPUSCULAR VOLUME 92.7 fL (78.0-93.0); RED BLOOD CELL COUNT 4.49 x10^6/uL (4.00-5.50); WHITE BLOOD CELL COUNT,WBC 7.9 x10^3/uL (4.0-10.0)
[2022-12-23 07:13] LABS: ANION GAP 11.9 mmol/L (5-15); CALCIUM 9.2 mg/dL (8.5-10.1); CREATININE 0.9 mg/dL (0.55-1.02); EST CRCL DRUG DOSING (CG) 39.18 mL/min; POTASSIUM,K 4.9 mmol/L (3.5-5.1)
[2022-12-23] MEDS: Sertraline 100 MG Tab PO SCH (09:02)
[2022-12-23] MEDS: Lisinopril 10 MG Tab PO SCH (09:03)
[2022-12-23] MEDS: Famotidine 20 MG Tab PO SCH (09:03)
[2022-12-23] MEDS: QUEtiapine 25 MG Tab PO SCH (09:04)
[2022-12-23] MEDS: Sennosides/Docusate Sodium 50-8.6 MG Tab PO SCH (09:04)
[2022-12-23] MEDS: buPROPion 150 MG Tab.ER PO SCH (09:04)
[2022-12-23 14:23] VITALS: BP 150/69; PULSE 79
[2022-12-23] MEDS ORDERED: Amoxicillin/Clavulanate K 875-125 MG Tab PO SCH (18:00)
== END 2022-12-23 17:06 | disposition swing bed (61) | DRG 690 ==
LOC: VM.MS 15:32
PROVIDERS: ADMIT Family Medicine; ATTEND Family Medicine
DX: N39.0 Urinary tract infection, site not specified (principal); E78.5 Hyperlipidemia, unspecified; I10 Essential (primary) hypertension; E03.9 Hypothyroidism, unspecified; F41.9 Anxiety disorder, unspecified; F32.A Depression, unspecified; D75.839 Thrombocytosis, unspecified; M81.0 Age-related osteoporosis without current pathological fracture; E55.9 Vitamin D deficiency, unspecified; M19.90 Unspecified osteoarthritis, unspecified site; D32.0 Benign neoplasm of cerebral meninges; Z79.890 Hormone replacement therapy; Z79.899 Other long term (current) drug therapy; Z90.710 Acquired absence of both cervix and uterus; Z98.890 Other specified postprocedural states; Z82.49 Family history of ischemic heart disease and other diseases of the circulatory system; K21.9 Gastro-esophageal reflux disease without esophagitis
CPT/HCPCS: 36415; 80048; 85025; 85027; 95851-GO; 97110-GP; 97116-GP; 97161-GP; 97166-GO; 97530-GP; 97535-GO; A9270-GY; J0696

== ENCOUNTER 2022-12-23 07:06 | Inpatient (IN) | payer SELFPAY ==
[2022-12-23] MEDS ORDERED: Cyclobenzaprine 10 MG Tab PO PRN (15:07)
[2022-12-23] MEDS ORDERED: Aluminum Hydroxide/Magnesium Hydroxide/Simethicone Susp 30 ML Cup PO PRN (15:07)
[2022-12-23] MEDS ORDERED: Acetaminophen 325 MG Tab PO PRN (15:07)
[2022-12-23] MEDS ORDERED: Hydrocortisone 1% Crm 30 GM Tube TOP PRN (15:07)
[2022-12-23] MEDS: Amoxicillin/Clavulanate K 875-125 MG Tab PO SCH (18:31)
[2022-12-23] MEDS: Famotidine 20 MG Tab PO SCH (21:32)
[2022-12-23] MEDS: Oxybutynin 5 MG Tab.ER PO SCH (21:32)
[2022-12-23] MEDS: Sennosides/Docusate Sodium 50-8.6 MG Tab PO SCH (21:33)
[2022-12-23] MEDS: LORazepam 0.5 MG Tab PO PRN (21:33)
[2022-12-23] MEDS: QUEtiapine 25 MG Tab PO SCH (21:36)
[2022-12-24] MEDS: Levothyroxine 75 MCG Tab PO SCH (07:00)
[2022-12-24] MEDS: Omeprazole 20 MG Cap.CR PO SCH (07:00)
[2022-12-24] MEDS: QUEtiapine 25 MG Tab PO SCH ×2 (08:46→21:13)
[2022-12-24] MEDS: Amoxicillin/Clavulanate K 875-125 MG Tab PO SCH ×2 (08:46→18:32)
[2022-12-24] MEDS: buPROPion 150 MG Tab.ER PO SCH (08:48)
[2022-12-24] MEDS: Sertraline 100 MG Tab PO SCH (08:48)
[2022-12-24] MEDS: Lisinopril 20 MG Tab PO SCH (08:49)
[2022-12-24] MEDS: Famotidine 20 MG Tab PO SCH ×2 (08:49→21:12)
[2022-12-24] MEDS: Sennosides/Docusate Sodium 50-8.6 MG Tab PO SCH ×2 (08:50→21:12)
[2022-12-24] MEDS ORDERED: Loperamide 2 MG Cap PO PRN (11:57)
[2022-12-24] MEDS: Oxybutynin 5 MG Tab.ER PO SCH (21:12)
[2022-12-24] MEDS: LORazepam 0.5 MG Tab PO PRN (21:12)
[2022-12-25] MEDS: Levothyroxine 75 MCG Tab PO SCH (06:40)
[2022-12-25] MEDS: Omeprazole 20 MG Cap.CR PO SCH (06:40)
[2022-12-25] MEDS: buPROPion 150 MG Tab.ER PO SCH (08:16)
[2022-12-25] MEDS: Famotidine 20 MG Tab PO SCH ×2 (08:16→20:48)
[2022-12-25] MEDS: Lisinopril 20 MG Tab PO SCH (08:16)
[2022-12-25] MEDS: Amoxicillin/Clavulanate K 875-125 MG Tab PO SCH (08:16)
[2022-12-25] MEDS: QUEtiapine 25 MG Tab PO SCH ×2 (08:17→20:47)
[2022-12-25] MEDS: Sertraline 100 MG Tab PO SCH (08:17)
[2022-12-25] MEDS: Sennosides/Docusate Sodium 50-8.6 MG Tab PO SCH ×2 (08:18→20:47)
[2022-12-25] MEDS: LORazepam 0.5 MG Tab PO PRN (20:48)
[2022-12-25] MEDS: Oxybutynin 5 MG Tab.ER PO SCH (20:48)
[2022-12-26] MEDS: Omeprazole 20 MG Cap.CR PO SCH (06:46)
[2022-12-26] MEDS: Levothyroxine 75 MCG Tab PO SCH (06:46)
[2022-12-26] MEDS: Lisinopril 20 MG Tab PO SCH (08:56)
[2022-12-26] MEDS: buPROPion 150 MG Tab.ER PO SCH (08:56)
[2022-12-26] MEDS: QUEtiapine 25 MG Tab PO SCH ×2 (08:57→20:39)
[2022-12-26] MEDS: Sennosides/Docusate Sodium 50-8.6 MG Tab PO SCH ×2 (08:58→20:38)
[2022-12-26] MEDS: Famotidine 20 MG Tab PO SCH ×2 (08:58→20:38)
[2022-12-26] MEDS: Sertraline 100 MG Tab PO SCH (08:58)
[2022-12-26] MEDS: LORazepam 0.5 MG Tab PO PRN (20:38)
[2022-12-26] MEDS: Oxybutynin 5 MG Tab.ER PO SCH (20:38)
[2022-12-27] MEDS: Levothyroxine 75 MCG Tab PO SCH (06:19)
[2022-12-27] MEDS: Omeprazole 20 MG Cap.CR PO SCH (06:19)
[2022-12-27] MEDS: QUEtiapine 25 MG Tab PO SCH ×2 (08:05→20:17)
[2022-12-27] MEDS: Sertraline 100 MG Tab PO SCH (08:06)
[2022-12-27] MEDS: Lisinopril 20 MG Tab PO SCH (08:07)
[2022-12-27] MEDS: buPROPion 150 MG Tab.ER PO SCH (08:07)
[2022-12-27] MEDS: Famotidine 20 MG Tab PO SCH ×2 (08:08→20:17)
[2022-12-27] MEDS: Sennosides/Docusate Sodium 50-8.6 MG Tab PO SCH ×2 (08:08→20:17)
[2022-12-27] MEDS: Ondansetron 4 MG Tab.DIS PO PRN (10:32)
[2022-12-27] MEDS: Oxybutynin 5 MG Tab.ER PO SCH (20:16)
[2022-12-27] MEDS: LORazepam 0.5 MG Tab PO PRN (20:19)
[2022-12-28] MEDS: Omeprazole 20 MG Cap.CR PO SCH (06:53)
[2022-12-28] MEDS: Levothyroxine 75 MCG Tab PO SCH (06:53)
[2022-12-28] MEDS: QUEtiapine 25 MG Tab PO SCH ×2 (09:53→20:41)
[2022-12-28] MEDS: Sennosides/Docusate Sodium 50-8.6 MG Tab PO SCH ×2 (09:54→20:42)
[2022-12-28] MEDS: Famotidine 20 MG Tab PO SCH ×2 (09:54→20:42)
[2022-12-28] MEDS: Sertraline 100 MG Tab PO SCH (09:54)
[2022-12-28] MEDS: buPROPion 150 MG Tab.ER PO SCH (09:54)
[2022-12-28] MEDS: Lisinopril 20 MG Tab PO SCH (09:55)
[2022-12-28] MEDS: Oxybutynin 5 MG Tab.ER PO SCH (20:40)
[2022-12-28] MEDS: LORazepam 0.5 MG Tab PO PRN (20:41)
[2022-12-29] MEDS: Omeprazole 20 MG Cap.CR PO SCH (06:26)
[2022-12-29] MEDS: Levothyroxine 75 MCG Tab PO SCH (06:26)
[2022-12-29] MEDS: Sertraline 100 MG Tab PO SCH (09:13)
[2022-12-29] MEDS: Famotidine 20 MG Tab PO SCH ×2 (09:14→20:40)
[2022-12-29] MEDS: QUEtiapine 25 MG Tab PO SCH ×2 (09:14→20:40)
[2022-12-29] MEDS: buPROPion 150 MG Tab.ER PO SCH (09:15)
[2022-12-29] MEDS: Sennosides/Docusate Sodium 50-8.6 MG Tab PO SCH ×2 (09:15→20:15)
[2022-12-29] MEDS: Lisinopril 20 MG Tab PO SCH (09:16)
[2022-12-29] MEDS: Oxybutynin 5 MG Tab.ER PO SCH (20:40)
[2022-12-30] MEDS: Omeprazole 20 MG Cap.CR PO SCH (06:00)
[2022-12-30] MEDS: Levothyroxine 75 MCG Tab PO SCH (06:00)
[2022-12-30] MEDS: QUEtiapine 25 MG Tab PO SCH ×2 (08:37→20:12)
[2022-12-30] MEDS: Lisinopril 20 MG Tab PO SCH (08:37)
[2022-12-30] MEDS: Famotidine 20 MG Tab PO SCH ×2 (08:37→20:12)
[2022-12-30] MEDS: Sertraline 100 MG Tab PO SCH (08:37)
[2022-12-30] MEDS: Sennosides/Docusate Sodium 50-8.6 MG Tab PO SCH ×2 (08:38→20:12)
[2022-12-30] MEDS: buPROPion 150 MG Tab.ER PO SCH (08:38)
[2022-12-30] MEDS: Oxybutynin 5 MG Tab.ER PO SCH (20:12)
[2022-12-31] MEDS: Levothyroxine 75 MCG Tab PO SCH (06:01)
[2022-12-31] MEDS: Omeprazole 20 MG Cap.CR PO SCH (06:01)
[2022-12-31 07:08] LABS: BASOPHILS PERCENT AUTO 0.5 % (0.2-1.2); EOSINOPHILS ABSOLUTE AUTO 0.3 x10^3/uL (0.0-0.5); EOSINOPHILS PERCENT AUTO 3.8 % (0.0-4.0); HEMATOCRIT 40.5 % (33.0-47.0); HEMOGLOBIN 13.5 g/dL (12.0-16.0); IMMATURE GRAN ABSOLUTE AUTO 0.03 x10^3/uL (0.00-0.07); LYMPHOCYTES ABSOLUTE AUTO 1.9 x10^3/uL (1.0-4.8); LYMPHOCYTES PERCENT AUTO 24.3 % (25.0-50.0); MEAN CORPUSCULAR HEMOGLOBIN 30.8 pg (26.0-32.0); MEAN CORPUSCULAR HGB CONC 33.3 g/dL (32.0-36.0); MEAN CORPUSCULAR VOLUME 92.5 fL (78.0-93.0); MONOCYTES ABSOLUTE AUTO 0.8 x10^3/uL (0.0-0.8); MONOCYTES PERCENT AUTO 10.8 % (2.0-11.0); NEUTROPHILS ABSOLUTE AUTO 4.6 x10^3/uL (1.8-7.7); NEUTROPHILS PERCENT AUTO 60.2 % (50.0-80.0); PLATELET COUNT,PLT 563 x10^3/uL (130-400); RED BLOOD CELL COUNT 4.38 x10^6/uL (4.00-5.50); WHITE BLOOD CELL COUNT,WBC 7.7 x10^3/uL (4.0-10.0)
[2022-12-31 07:29] LABS: CALCIUM 8.8 mg/dL (8.5-10.1); CREATININE 0.9 mg/dL (0.55-1.02); EST CRCL DRUG DOSING (CG) 39.18 mL/min; POTASSIUM,K 4.6 mmol/L (3.5-5.1)
[2022-12-31 07:30] LABS: ANION GAP 2.6 mmol/L (5-15)
[2022-12-31] MEDS: QUEtiapine 25 MG Tab PO SCH ×2 (08:43→20:15)
[2022-12-31] MEDS: Famotidine 20 MG Tab PO SCH ×2 (08:44→20:15)
[2022-12-31] MEDS: Sertraline 100 MG Tab PO SCH (08:45)
[2022-12-31] MEDS: Sennosides/Docusate Sodium 50-8.6 MG Tab PO SCH ×2 (08:47→20:16)
[2022-12-31] MEDS: buPROPion 150 MG Tab.ER PO SCH (08:47)
[2022-12-31] MEDS: Lisinopril 20 MG Tab PO SCH (08:47)
[2022-12-31] MEDS: Oxybutynin 5 MG Tab.ER PO SCH (20:15)
[2022-12-31] MEDS: Nystatin Crm 30 GM Tube TOP SCH (20:16)
[2023-01-01] MEDS: Omeprazole 20 MG Cap.CR PO SCH (06:16)
[2023-01-01] MEDS: Levothyroxine 75 MCG Tab PO SCH (06:16)
[2023-01-01] MEDS: Famotidine 20 MG Tab PO SCH ×2 (09:23→20:04)
[2023-01-01] MEDS: QUEtiapine 25 MG Tab PO SCH ×2 (09:23→20:05)
[2023-01-01] MEDS: Sennosides/Docusate Sodium 50-8.6 MG Tab PO SCH ×2 (09:23→20:04)
[2023-01-01] MEDS: buPROPion 150 MG Tab.ER PO SCH (09:23)
[2023-01-01] MEDS: Sertraline 100 MG Tab PO SCH (09:24)
[2023-01-01] MEDS: Lisinopril 20 MG Tab PO SCH (09:25)
[2023-01-01] MEDS: Nystatin Crm 30 GM Tube TOP SCH ×2 (09:27→20:05)
[2023-01-01] MEDS: Oxybutynin 5 MG Tab.ER PO SCH (20:05)
[2023-01-01] MEDS: LORazepam 0.5 MG Tab PO PRN (20:05)
[2023-01-02] MEDS: Omeprazole 20 MG Cap.CR PO SCH (06:36)
[2023-01-02] MEDS: Levothyroxine 75 MCG Tab PO SCH (06:36)
[2023-01-02] MEDS: Sertraline 100 MG Tab PO SCH (08:23)
[2023-01-02] MEDS: Famotidine 20 MG Tab PO SCH ×2 (08:23→20:10)
[2023-01-02] MEDS: Lisinopril 20 MG Tab PO SCH (08:23)
[2023-01-02] MEDS: QUEtiapine 25 MG Tab PO SCH ×2 (08:24→20:10)
[2023-01-02] MEDS: buPROPion 150 MG Tab.ER PO SCH (08:24)
[2023-01-02] MEDS: Sennosides/Docusate Sodium 50-8.6 MG Tab PO SCH ×2 (08:25→20:10)
[2023-01-02] MEDS: Nystatin Crm 30 GM Tube TOP SCH ×2 (08:26→20:11)
[2023-01-02] MEDS: Ondansetron 4 MG Tab.DIS PO PRN (09:41)
[2023-01-02] MEDS: Oxybutynin 5 MG Tab.ER PO SCH (20:10)
[2023-01-02] MEDS: LORazepam 0.5 MG Tab PO PRN (20:10)
[2023-01-03] MEDS: Omeprazole 20 MG Cap.CR PO SCH (06:31)
[2023-01-03] MEDS: Levothyroxine 75 MCG Tab PO SCH (06:31)
[2023-01-03 07:24] LABS: ANION GAP 10.8 mmol/L (5-15); CALCIUM 8.6 mg/dL (8.5-10.1); CREATININE 0.9 mg/dL (0.55-1.02); EST CRCL DRUG DOSING (CG) 39.18 mL/min; POTASSIUM,K 4.8 mmol/L (3.5-5.1)
[2023-01-03] MEDS: Lisinopril 20 MG Tab PO SCH (08:18)
[2023-01-03] MEDS: Sennosides/Docusate Sodium 50-8.6 MG Tab PO SCH ×2 (08:18→20:06)
[2023-01-03] MEDS: Famotidine 20 MG Tab PO SCH ×2 (08:18→20:06)
[2023-01-03] MEDS: buPROPion 150 MG Tab.ER PO SCH (08:18)
[2023-01-03] MEDS: Sertraline 100 MG Tab PO SCH (08:19)
[2023-01-03] MEDS: QUEtiapine 25 MG Tab PO SCH ×2 (08:19→20:01)
[2023-01-03] MEDS: Nystatin Crm 30 GM Tube TOP SCH ×3 (08:22→20:02)
[2023-01-03] MEDS: LORazepam 0.5 MG Tab PO PRN (20:01)
[2023-01-03] MEDS: Oxybutynin 5 MG Tab.ER PO SCH (20:01)
[2023-01-04] MEDS: Omeprazole 20 MG Cap.CR PO SCH (06:31)
[2023-01-04] MEDS: Levothyroxine 75 MCG Tab PO SCH (06:31)
[2023-01-04] MEDS: buPROPion 150 MG Tab.ER PO SCH (08:43)
[2023-01-04] MEDS: Lisinopril 20 MG Tab PO SCH (08:43)
[2023-01-04] MEDS: QUEtiapine 25 MG Tab PO SCH ×2 (08:43→20:09)
[2023-01-04] MEDS: Famotidine 20 MG Tab PO SCH ×2 (08:43→20:08)
[2023-01-04] MEDS: Sertraline 100 MG Tab PO SCH (08:43)
[2023-01-04] MEDS: Sennosides/Docusate Sodium 50-8.6 MG Tab PO SCH ×2 (08:43→20:09)
[2023-01-04] MEDS: Nystatin Crm 30 GM Tube TOP SCH ×2 (08:46→20:08)
[2023-01-04] MEDS: Oxybutynin 5 MG Tab.ER PO SCH (20:08)
[2023-01-04] MEDS: LORazepam 0.5 MG Tab PO PRN (20:09)
[2023-01-05] MEDS: Omeprazole 20 MG Cap.CR PO SCH (06:28)
[2023-01-05] MEDS: Levothyroxine 75 MCG Tab PO SCH (06:28)
[2023-01-05] MEDS: Lisinopril 20 MG Tab PO SCH (09:00)
[2023-01-05] MEDS: buPROPion 150 MG Tab.ER PO SCH (09:00)
[2023-01-05] MEDS: Sennosides/Docusate Sodium 50-8.6 MG Tab PO SCH ×2 (09:00→20:25)
[2023-01-05] MEDS: Sertraline 100 MG Tab PO SCH (09:01)
[2023-01-05] MEDS: QUEtiapine 25 MG Tab PO SCH ×2 (09:01→20:25)
[2023-01-05] MEDS: Famotidine 20 MG Tab PO SCH ×2 (09:01→20:25)
[2023-01-05] MEDS: Nystatin Crm 30 GM Tube TOP SCH ×2 (09:04→20:31)
[2023-01-05] MEDS: Oxybutynin 5 MG Tab.ER PO SCH (20:25)
[2023-01-06] MEDS: Levothyroxine 75 MCG Tab PO SCH (06:40)
[2023-01-06] MEDS: Omeprazole 20 MG Cap.CR PO SCH (06:40)
[2023-01-06] MEDS: Sertraline 100 MG Tab PO SCH (08:45)
[2023-01-06] MEDS: buPROPion 150 MG Tab.ER PO SCH (08:46)
[2023-01-06] MEDS: Lisinopril 20 MG Tab PO SCH (08:46)
[2023-01-06] MEDS: Famotidine 20 MG Tab PO SCH ×2 (08:47→20:30)
[2023-01-06] MEDS: Sennosides/Docusate Sodium 50-8.6 MG Tab PO SCH ×2 (08:47→20:30)
[2023-01-06] MEDS: QUEtiapine 25 MG Tab PO SCH ×2 (08:48→20:30)
[2023-01-06] MEDS: Nystatin Crm 30 GM Tube TOP SCH ×2 (08:49→20:32)
[2023-01-06] MEDS: Oxybutynin 5 MG Tab.ER PO SCH (20:30)
[2023-01-06] MEDS: LORazepam 0.5 MG Tab PO PRN (20:30)
[2023-01-07] MEDS: Levothyroxine 75 MCG Tab PO SCH (06:33)
[2023-01-07] MEDS: Omeprazole 20 MG Cap.CR PO SCH (06:33)
[2023-01-07] MEDS: QUEtiapine 25 MG Tab PO SCH ×2 (09:34→20:11)
[2023-01-07] MEDS: Sennosides/Docusate Sodium 50-8.6 MG Tab PO SCH ×2 (09:34→20:11)
[2023-01-07] MEDS: Sertraline 100 MG Tab PO SCH (09:35)
[2023-01-07] MEDS: Famotidine 20 MG Tab PO SCH ×2 (09:36→20:11)
[2023-01-07] MEDS: buPROPion 150 MG Tab.ER PO SCH (09:36)
[2023-01-07] MEDS: Lisinopril 20 MG Tab PO SCH (09:36)
[2023-01-07] MEDS: Nystatin Crm 30 GM Tube TOP SCH ×2 (09:37→20:11)
[2023-01-07] MEDS: Oxybutynin 5 MG Tab.ER PO SCH (20:11)
[2023-01-08] MEDS: Levothyroxine 75 MCG Tab PO SCH (06:22)
[2023-01-08] MEDS: Omeprazole 20 MG Cap.CR PO SCH (06:22)
[2023-01-08 07:54] LABS: BILIRUBIN,URINE NEGATIVE (NEGATIVE); COLOR,URINE YELLOW (YELLOW); GLUCOSE,URINE NEGATIVE (NEGATIVE); KETONES,URINE NEGATIVE (NEGATIVE); LEUKOCYTE ESTERASE,URINE LARGE (NEGATIVE); NITRITE,URINE POSITIVE (NEGATIVE); OCCULT BLOOD,URINE NEGATIVE (NEGATIVE); PH,URINE 5.5 (5.0-8.0); PROTEIN,URINE NEGATIVE (NEGATIVE); UROBILINOGEN,URINE 0.2 EU/dL (0.2)
[2023-01-08 08:02] LABS: APPEARANCE,URINE CLOUDY (CLEAR)
[2023-01-08 08:03] LABS: BACTERIA,URINE MANY /HPF (NOT SEEN); CALCIUM OXALATE CRYSTALS,URINE FEW /HPF (NOT SEEN); MUCUS,URINE OCCASIONAL /LPF (NOT SEEN); RBC,URINE 0-5 /HPF (NOT SEEN); SQUAMOUS EPITHELIAL CELLS,UR FEW /HPF (NOT SEEN); WBC,URINE 20-30 /HPF (NOT SEEN)
[2023-01-08] MEDS: Nystatin Crm 30 GM Tube TOP SCH ×2 (08:30→20:34)
[2023-01-08] MEDS: Sertraline 100 MG Tab PO SCH (08:31)
[2023-01-08] MEDS: buPROPion 150 MG Tab.ER PO SCH (08:31)
[2023-01-08] MEDS: Lisinopril 20 MG Tab PO SCH (08:32)
[2023-01-08] MEDS: Famotidine 20 MG Tab PO SCH ×2 (08:33→20:35)
[2023-01-08] MEDS: Sennosides/Docusate Sodium 50-8.6 MG Tab PO SCH ×2 (08:34→20:30)
[2023-01-08] MEDS: QUEtiapine 25 MG Tab PO SCH ×2 (08:36→20:33)
[2023-01-08] MEDS: Ondansetron 4 MG Tab.DIS PO PRN (14:05)
[2023-01-08] MEDS: Oxybutynin 5 MG Tab.ER PO SCH (20:32)
[2023-01-09] MEDS: Omeprazole 20 MG Cap.CR PO SCH (06:32)
[2023-01-09] MEDS: Levothyroxine 75 MCG Tab PO SCH (06:32)
[2023-01-09] MEDS: Famotidine 20 MG Tab PO SCH ×2 (08:02→20:37)
[2023-01-09] MEDS: Sertraline 100 MG Tab PO SCH (08:03)
[2023-01-09] MEDS: buPROPion 150 MG Tab.ER PO SCH (08:03)
[2023-01-09] MEDS: Sennosides/Docusate Sodium 50-8.6 MG Tab PO SCH ×2 (08:04→20:37)
[2023-01-09] MEDS: QUEtiapine 25 MG Tab PO SCH ×2 (08:05→20:37)
[2023-01-09] MEDS: Lisinopril 20 MG Tab PO SCH (08:05)
[2023-01-09] MEDS: Nystatin Crm 30 GM Tube TOP SCH (20:36)
[2023-01-09] MEDS: Oxybutynin 5 MG Tab.ER PO SCH (20:38)
[2023-01-09] MEDS: Nitrofurantoin Monohydrate/Macrocrystalline 100 MG Cap PO SCH (20:39)
[2023-01-10 06:58] LABS: BASOPHILS PERCENT AUTO 0.4 % (0.2-1.2); EOSINOPHILS ABSOLUTE AUTO 0.2 x10^3/uL (0.0-0.5); EOSINOPHILS PERCENT AUTO 2.1 % (0.0-4.0); HEMATOCRIT 43.9 % (33.0-47.0); HEMOGLOBIN 14.5 g/dL (12.0-16.0); IMMATURE GRAN ABSOLUTE AUTO 0.02 x10^3/uL (0.00-0.07); LYMPHOCYTES ABSOLUTE AUTO 2.2 x10^3/uL (1.0-4.8); LYMPHOCYTES PERCENT AUTO 28.5 % (25.0-50.0); MEAN CORPUSCULAR HEMOGLOBIN 30.9 pg (26.0-32.0); MEAN CORPUSCULAR VOLUME 93.4 fL (78.0-93.0); MONOCYTES ABSOLUTE AUTO 0.7 x10^3/uL (0.0-0.8); MONOCYTES PERCENT AUTO 8.7 % (2.0-11.0); NEUTROPHILS ABSOLUTE AUTO 4.6 x10^3/uL (1.8-7.7); PLATELET COUNT,PLT 572 x10^3/uL (130-400); WHITE BLOOD CELL COUNT,WBC 7.6 x10^3/uL (4.0-10.0)
[2023-01-10 07:17] LABS: CALCIUM 9.3 mg/dL (8.5-10.1); CREATININE 0.9 mg/dL (0.55-1.02); EST CRCL DRUG DOSING (CG) 39.18 mL/min; POTASSIUM,K 4.5 mmol/L (3.5-5.1)
[2023-01-10 07:23] LABS: ANION GAP 9.5 mmol/L (5-15)
[2023-01-10] MEDS: Famotidine 20 MG Tab PO SCH ×2 (09:01→21:02)
[2023-01-10] MEDS: buPROPion 150 MG Tab.ER PO SCH (09:01)
[2023-01-10] MEDS: Sennosides/Docusate Sodium 50-8.6 MG Tab PO SCH ×2 (09:01→21:03)
[2023-01-10] MEDS: Nitrofurantoin Monohydrate/Macrocrystalline 100 MG Cap PO SCH ×2 (09:01→21:02)
[2023-01-10] MEDS: Sertraline 100 MG Tab PO SCH (09:02)
[2023-01-10] MEDS: Lisinopril 20 MG Tab PO SCH (09:03)
[2023-01-10] MEDS: Nystatin Crm 30 GM Tube TOP SCH ×2 (09:03→21:03)
[2023-01-10] MEDS: Levothyroxine 75 MCG Tab PO SCH (09:04)
[2023-01-10] MEDS: QUEtiapine 25 MG Tab PO SCH ×2 (09:04→21:02)
[2023-01-10] MEDS: Omeprazole 20 MG Cap.CR PO SCH (09:04)
[2023-01-10] MEDS: Ondansetron 4 MG Tab.DIS PO PRN (20:01)
[2023-01-10] MEDS: Oxybutynin 5 MG Tab.ER PO SCH (21:02)
[2023-01-11] MEDS: Levothyroxine 75 MCG Tab PO SCH (06:23)
[2023-01-11] MEDS: Omeprazole 20 MG Cap.CR PO SCH (06:23)
[2023-01-11] MEDS: Famotidine 20 MG Tab PO SCH ×2 (08:51→20:39)
[2023-01-11] MEDS: amLODIPine 2.5 MG Tab PO SCH ×2 (08:52→09:01)
[2023-01-11] MEDS: Nitrofurantoin Monohydrate/Macrocrystalline 100 MG Cap PO SCH ×2 (08:59→20:39)
[2023-01-11] MEDS: Lisinopril 20 MG Tab PO SCH (09:00)
[2023-01-11] MEDS: Sertraline 100 MG Tab PO SCH (09:00)
[2023-01-11] MEDS: Sennosides/Docusate Sodium 50-8.6 MG Tab PO SCH ×2 (09:00→21:00)
[2023-01-11] MEDS: buPROPion 150 MG Tab.ER PO SCH (09:01)
[2023-01-11] MEDS: Nystatin Crm 30 GM Tube TOP SCH ×3 (09:02→21:00)
[2023-01-11] MEDS: QUEtiapine 25 MG Tab PO SCH ×2 (09:02→20:39)
[2023-01-11] MEDS: Oxybutynin 5 MG Tab.ER PO SCH (20:39)
[2023-01-12] MEDS: Levothyroxine 75 MCG Tab PO SCH (06:42)
[2023-01-12] MEDS: Omeprazole 20 MG Cap.CR PO SCH (06:43)
[2023-01-12] MEDS: Ondansetron 4 MG Tab.DIS PO PRN (08:57)
[2023-01-12] MEDS: Nystatin Crm 30 GM Tube TOP SCH ×2 (08:58→20:03)
[2023-01-12] MEDS: Famotidine 20 MG Tab PO SCH ×2 (08:58→20:04)
[2023-01-12] MEDS: Nitrofurantoin Monohydrate/Macrocrystalline 100 MG Cap PO SCH ×2 (08:58→20:04)
[2023-01-12] MEDS: Sertraline 100 MG Tab PO SCH (08:59)
[2023-01-12] MEDS: buPROPion 150 MG Tab.ER PO SCH (08:59)
[2023-01-12] MEDS: Sennosides/Docusate Sodium 50-8.6 MG Tab PO SCH ×2 (08:59→20:04)
[2023-01-12] MEDS: Lisinopril 20 MG Tab PO SCH (08:59)
[2023-01-12] MEDS: amLODIPine 2.5 MG Tab PO SCH (09:00)
[2023-01-12] MEDS: QUEtiapine 25 MG Tab PO SCH ×2 (09:00→20:05)
[2023-01-12] MEDS: Oxybutynin 5 MG Tab.ER PO SCH (20:04)
[2023-01-13] MEDS: Omeprazole 20 MG Cap.CR PO SCH (06:21)
[2023-01-13] MEDS: Levothyroxine 75 MCG Tab PO SCH (06:21)
[2023-01-13] MEDS: buPROPion 150 MG Tab.ER PO SCH (08:47)
[2023-01-13] MEDS: Sennosides/Docusate Sodium 50-8.6 MG Tab PO SCH ×2 (08:47→20:05)
[2023-01-13] MEDS: amLODIPine 2.5 MG Tab PO SCH (08:47)
[2023-01-13] MEDS: Lisinopril 20 MG Tab PO SCH (08:47)
[2023-01-13] MEDS: QUEtiapine 25 MG Tab PO SCH ×2 (08:47→20:04)
[2023-01-13] MEDS: Nitrofurantoin Monohydrate/Macrocrystalline 100 MG Cap PO SCH ×2 (08:47→20:04)
[2023-01-13] MEDS: Famotidine 20 MG Tab PO SCH ×2 (08:47→20:04)
[2023-01-13] MEDS: Nystatin Crm 30 GM Tube TOP SCH ×2 (08:48→20:04)
[2023-01-13] MEDS: Sertraline 100 MG Tab PO SCH (08:48)
[2023-01-13] MEDS: LORazepam 0.5 MG Tab PO PRN (20:04)
[2023-01-13] MEDS: Oxybutynin 5 MG Tab.ER PO SCH (20:04)
[2023-01-14] MEDS: Omeprazole 20 MG Cap.CR PO SCH (06:23)
[2023-01-14] MEDS: Levothyroxine 75 MCG Tab PO SCH (06:23)
[2023-01-14] MEDS: Nitrofurantoin Monohydrate/Macrocrystalline 100 MG Cap PO SCH ×2 (08:07→20:01)
[2023-01-14] MEDS: Famotidine 20 MG Tab PO SCH ×2 (08:07→20:02)
[2023-01-14] MEDS: Sertraline 100 MG Tab PO SCH (08:07)
[2023-01-14] MEDS: buPROPion 150 MG Tab.ER PO SCH (08:07)
[2023-01-14] MEDS: Sennosides/Docusate Sodium 50-8.6 MG Tab PO SCH ×2 (08:08→20:02)
[2023-01-14] MEDS: Lisinopril 20 MG Tab PO SCH (08:08)
[2023-01-14] MEDS: amLODIPine 2.5 MG Tab PO SCH (08:08)
[2023-01-14] MEDS: Nystatin Crm 30 GM Tube TOP SCH (08:09)
[2023-01-14] MEDS: QUEtiapine 25 MG Tab PO SCH ×2 (08:09→20:02)
[2023-01-14] MEDS: LORazepam 0.5 MG Tab PO PRN (20:01)
[2023-01-14] MEDS: Oxybutynin 5 MG Tab.ER PO SCH (20:01)
[2023-01-15] MEDS: Levothyroxine 75 MCG Tab PO SCH (06:08)
[2023-01-15] MEDS: Omeprazole 20 MG Cap.CR PO SCH (06:08)
[2023-01-15] MEDS: amLODIPine 2.5 MG Tab PO SCH (09:49)
[2023-01-15] MEDS: Lisinopril 20 MG Tab PO SCH (09:50)
[2023-01-15] MEDS: Sennosides/Docusate Sodium 50-8.6 MG Tab PO SCH ×2 (09:50→20:01)
[2023-01-15] MEDS: Nitrofurantoin Monohydrate/Macrocrystalline 100 MG Cap PO SCH ×2 (09:50→20:00)
[2023-01-15] MEDS: Famotidine 20 MG Tab PO SCH ×2 (09:51→20:01)
[2023-01-15] MEDS: QUEtiapine 25 MG Tab PO SCH ×2 (09:51→20:01)
[2023-01-15] MEDS: Sertraline 100 MG Tab PO SCH (09:51)
[2023-01-15] MEDS: buPROPion 150 MG Tab.ER PO SCH (09:51)
[2023-01-15] MEDS: Oxybutynin 5 MG Tab.ER PO SCH (20:01)
[2023-01-16] MEDS: Levothyroxine 75 MCG Tab PO SCH (06:06)
[2023-01-16] MEDS: Omeprazole 20 MG Cap.CR PO SCH (06:06)
[2023-01-16] MEDS: Nitrofurantoin Monohydrate/Macrocrystalline 100 MG Cap PO SCH ×2 (08:25→20:04)
[2023-01-16] MEDS: Famotidine 20 MG Tab PO SCH ×2 (08:25→20:05)
[2023-01-16] MEDS: QUEtiapine 25 MG Tab PO SCH ×2 (08:26→20:05)
[2023-01-16] MEDS: Lisinopril 20 MG Tab PO SCH (08:26)
[2023-01-16] MEDS: buPROPion 150 MG Tab.ER PO SCH (08:27)
[2023-01-16] MEDS: Sennosides/Docusate Sodium 50-8.6 MG Tab PO SCH ×2 (08:27→20:06)
[2023-01-16] MEDS: Sertraline 100 MG Tab PO SCH (08:27)
[2023-01-16] MEDS: amLODIPine 2.5 MG Tab PO SCH (08:27)
[2023-01-16] MEDS: Oxybutynin 5 MG Tab.ER PO SCH (20:04)
[2023-01-17] MEDS: Omeprazole 20 MG Cap.CR PO SCH (06:42)
[2023-01-17] MEDS: Levothyroxine 75 MCG Tab PO SCH (06:42)
[2023-01-17] MEDS: Sertraline 100 MG Tab PO SCH (08:30)
[2023-01-17] MEDS: QUEtiapine 25 MG Tab PO SCH ×2 (08:31→20:07)
[2023-01-17] MEDS: buPROPion 150 MG Tab.ER PO SCH (08:31)
[2023-01-17] MEDS: Sennosides/Docusate Sodium 50-8.6 MG Tab PO SCH ×2 (08:31→20:06)
[2023-01-17] MEDS: Lisinopril 20 MG Tab PO SCH (08:32)
[2023-01-17] MEDS: amLODIPine 2.5 MG Tab PO SCH (08:32)
[2023-01-17] MEDS: Famotidine 20 MG Tab PO SCH ×2 (08:32→20:06)
[2023-01-17] MEDS: OXYBUTYNIN 10 MG PO SCH (20:07)
[2023-01-18] MEDS: Omeprazole 20 MG Cap.CR PO SCH (06:31)
[2023-01-18] MEDS: Levothyroxine 75 MCG Tab PO SCH (06:32)
[2023-01-18] MEDS: Ondansetron 4 MG Tab.DIS **OWN MED PO PRN ×2 (08:27→17:13)
[2023-01-18] MEDS: amLODIPine 2.5 MG Tab PO SCH (08:30)
[2023-01-18] MEDS: Sertraline 100 MG Tab PO SCH (08:31)
[2023-01-18] MEDS: Lisinopril 10 MG Tab PO SCH (08:32)
[2023-01-18] MEDS: buPROPion 150 MG Tab.ER PO SCH (08:32)
[2023-01-18] MEDS: QUEtiapine 25 MG Tab PO SCH ×2 (08:33→20:13)
[2023-01-18] MEDS: Famotidine 20 MG Tab PO SCH ×2 (08:36→20:12)
[2023-01-18] MEDS: Sennosides/Docusate Sodium 50-8.6 MG Tab PO SCH ×2 (08:36→20:12)
[2023-01-18] MEDS: LORazepam 0.5 MG Tab **OWN MED PO PRN (17:13)
[2023-01-18] MEDS: OXYBUTYNIN 10 MG PO SCH (20:12)
[2023-01-19 07:04] LABS: BASOPHILS PERCENT AUTO 0.4 % (0.2-1.2); EOSINOPHILS ABSOLUTE AUTO 0.2 x10^3/uL (0.0-0.5); EOSINOPHILS PERCENT AUTO 3.1 % (0.0-4.0); HEMATOCRIT 39.1 % (33.0-47.0); HEMOGLOBIN 13.1 g/dL (12.0-16.0); IMMATURE GRAN ABSOLUTE AUTO 0.03 x10^3/uL (0.00-0.07); LYMPHOCYTES ABSOLUTE AUTO 1.9 x10^3/uL (1.0-4.8); LYMPHOCYTES PERCENT AUTO 26.5 % (25.0-50.0); MEAN CORPUSCULAR HEMOGLOBIN 31.3 pg (26.0-32.0); MEAN CORPUSCULAR HGB CONC 33.5 g/dL (32.0-36.0); MEAN CORPUSCULAR VOLUME 93.3 fL (78.0-93.0); MONOCYTES ABSOLUTE AUTO 0.9 x10^3/uL (0.0-0.8); MONOCYTES PERCENT AUTO 12.2 % (2.0-11.0); NEUTROPHILS PERCENT AUTO 57.4 % (50.0-80.0); PLATELET COUNT,PLT 468 x10^3/uL (130-400); RED BLOOD CELL COUNT 4.19 x10^6/uL (4.00-5.50)
[2023-01-19] MEDS: Omeprazole 20 MG Cap.CR PO SCH (07:05)
[2023-01-19] MEDS: Levothyroxine 75 MCG Tab PO SCH (07:05)
[2023-01-19 07:23] LABS: A/G RATIO 0.43; BILIRUBIN TOTAL 0.5 mg/dL (0.2-1.0); CALCIUM 8.6 mg/dL (8.5-10.1); CREATININE 0.9 mg/dL (0.55-1.02); EST CRCL DRUG DOSING (CG) 39.18 mL/min; POTASSIUM,K 4.4 mmol/L (3.5-5.1); PROTEIN TOTAL,TP 6.6 g/dL (6.4-8.2)
[2023-01-19 07:25] LABS: ANION GAP 7.4 mmol/L (5-15)
[2023-01-19] MEDS: amLODIPine 2.5 MG Tab PO SCH (08:06)
[2023-01-19] MEDS: Sertraline 100 MG Tab PO SCH (08:07)
[2023-01-19] MEDS: Lisinopril 10 MG Tab PO SCH (08:08)
[2023-01-19] MEDS: buPROPion 150 MG Tab.ER PO SCH (08:08)
[2023-01-19] MEDS: QUEtiapine 25 MG Tab PO SCH ×2 (08:09→21:08)
[2023-01-19] MEDS: Ondansetron 4 MG Tab.DIS **OWN MED PO PRN ×2 (08:10→20:15)
[2023-01-19] MEDS: Famotidine 20 MG Tab PO SCH ×2 (08:12→21:04)
[2023-01-19] MEDS: Sennosides/Docusate Sodium 50-8.6 MG Tab PO SCH ×2 (08:13→21:05)
[2023-01-19] MEDS: Aspirin 325 MG Tab.EC PO SCH (12:58)
[2023-01-19] MEDS: OXYBUTYNIN 10 MG PO SCH (21:05)
[2023-01-20] MEDS: Omeprazole 20 MG Cap.CR PO SCH (06:47)
[2023-01-20] MEDS: Levothyroxine 75 MCG Tab PO SCH (06:47)
[2023-01-20] MEDS: Sennosides/Docusate Sodium 50-8.6 MG Tab PO SCH ×2 (09:16→20:19)
[2023-01-20] MEDS: Aspirin 325 MG Tab.EC PO SCH (09:17)
[2023-01-20] MEDS: Famotidine 20 MG Tab PO SCH ×2 (09:17→20:18)
[2023-01-20] MEDS: Lisinopril 10 MG Tab PO SCH (09:17)
[2023-01-20] MEDS: buPROPion 150 MG Tab.ER PO SCH (09:18)
[2023-01-20] MEDS: amLODIPine 2.5 MG Tab PO SCH (09:19)
[2023-01-20] MEDS: QUEtiapine 25 MG Tab PO SCH ×2 (09:20→20:21)
[2023-01-20] MEDS: Sertraline 100 MG Tab PO SCH (09:21)
[2023-01-20] MEDS: OXYBUTYNIN 10 MG PO SCH (20:17)
[2023-01-21] MEDS: Omeprazole 20 MG Cap.CR PO SCH (06:24)
[2023-01-21] MEDS: Levothyroxine 75 MCG Tab PO SCH (06:24)
[2023-01-21] MEDS: Famotidine 20 MG Tab PO SCH ×2 (09:38→20:51)
[2023-01-21] MEDS: Aspirin 325 MG Tab.EC PO SCH (09:38)
[2023-01-21] MEDS: Sennosides/Docusate Sodium 50-8.6 MG Tab PO SCH ×2 (09:38→20:51)
[2023-01-21] MEDS: Sertraline 100 MG Tab PO SCH (09:40)
[2023-01-21] MEDS: QUEtiapine 25 MG Tab PO SCH ×2 (09:40→20:54)
[2023-01-21] MEDS: amLODIPine 2.5 MG Tab PO SCH (09:40)
[2023-01-21] MEDS: Lisinopril 10 MG Tab PO SCH (09:40)
[2023-01-21] MEDS: buPROPion 150 MG Tab.ER PO SCH (09:40)
[2023-01-21] MEDS: OXYBUTYNIN 10 MG PO SCH (20:52)
[2023-01-22] MEDS: Levothyroxine 75 MCG Tab PO SCH (06:14)
[2023-01-22] MEDS: Omeprazole 20 MG Cap.CR PO SCH (06:14)
[2023-01-22] MEDS: Aspirin 325 MG Tab.EC PO SCH (09:44)
[2023-01-22] MEDS: Sennosides/Docusate Sodium 50-8.6 MG Tab PO SCH ×2 (09:44→21:15)
[2023-01-22] MEDS: Famotidine 20 MG Tab PO SCH ×2 (09:44→21:15)
[2023-01-22] MEDS: QUEtiapine 25 MG Tab PO SCH ×2 (09:45→21:12)
[2023-01-22] MEDS: Sertraline 100 MG Tab PO SCH (09:46)
[2023-01-22] MEDS: buPROPion 150 MG Tab.ER PO SCH (09:46)
[2023-01-22] MEDS: Lisinopril 10 MG Tab PO SCH (09:47)
[2023-01-22] MEDS: amLODIPine 2.5 MG Tab PO SCH (09:47)
[2023-01-22] MEDS: OXYBUTYNIN 10 MG PO SCH (21:12)
[2023-01-22] MEDS: LORazepam 0.5 MG Tab **OWN MED PO PRN (21:17)
[2023-01-23] MEDS: Levothyroxine 75 MCG Tab PO SCH (06:29)
[2023-01-23] MEDS: Omeprazole 20 MG Cap.CR PO SCH (06:30)
[2023-01-23] MEDS: Aspirin 325 MG Tab.EC PO SCH (08:56)
[2023-01-23] MEDS: Sennosides/Docusate Sodium 50-8.6 MG Tab PO SCH ×2 (08:57→20:42)
[2023-01-23] MEDS: QUEtiapine 25 MG Tab PO SCH ×2 (08:57→20:41)
[2023-01-23] MEDS: buPROPion 150 MG Tab.ER PO SCH (08:57)
[2023-01-23] MEDS: Famotidine 20 MG Tab PO SCH ×2 (08:57→20:42)
[2023-01-23] MEDS: Sertraline 100 MG Tab PO SCH (08:58)
[2023-01-23] MEDS: amLODIPine 2.5 MG Tab PO SCH (08:59)
[2023-01-23] MEDS: Lisinopril 10 MG Tab PO SCH (08:59)
[2023-01-23] MEDS: Ondansetron 4 MG Tab.DIS **OWN MED PO PRN (18:53)
[2023-01-23] MEDS: OXYBUTYNIN 10 MG PO SCH (20:42)
[2023-01-24] MEDS: Levothyroxine 75 MCG Tab PO SCH (06:31)
[2023-01-24] MEDS: Omeprazole 20 MG Cap.CR PO SCH (06:34)
[2023-01-24 06:42] LABS: APPEARANCE,URINE CLOUDY (CLEAR); BILIRUBIN,URINE NEGATIVE (NEGATIVE); COLOR,URINE YELLOW (YELLOW); GLUCOSE,URINE NEGATIVE (NEGATIVE); KETONES,URINE NEGATIVE (NEGATIVE); LEUKOCYTE ESTERASE,URINE MODERATE (NEGATIVE); NITRITE,URINE POSITIVE (NEGATIVE); OCCULT BLOOD,URINE SMALL (NEGATIVE); PROTEIN,URINE NEGATIVE (NEGATIVE)
[2023-01-24 06:49] LABS: BACTERIA,URINE MODERATE /HPF (NOT SEEN); CALCIUM OXALATE CRYSTALS,URINE FEW /HPF (NOT SEEN); HYALINE CASTS,URINE FEW; MUCUS,URINE FEW /LPF (NOT SEEN); SQUAMOUS EPITHELIAL CELLS,UR FEW /HPF (NOT SEEN); WBC,URINE 20-30 /HPF (NOT SEEN)
[2023-01-24] MEDS ORDERED: Bisacodyl 10 MG Supp RECTAL PRN (08:33)
[2023-01-24] MEDS ORDERED: Sulfamethoxazole/Trimethoprim 800-160 MG Tab PO SCH (09:00)
[2023-01-24] MEDS: Famotidine 20 MG Tab PO SCH ×2 (09:24→20:44)
[2023-01-24] MEDS: Sennosides/Docusate Sodium 50-8.6 MG Tab PO SCH ×2 (09:24→20:44)
[2023-01-24] MEDS: Aspirin 325 MG Tab.EC PO SCH (09:24)
[2023-01-24] MEDS: buPROPion 150 MG Tab.ER PO SCH (09:25)
[2023-01-24] MEDS: amLODIPine 2.5 MG Tab PO SCH (09:26)
[2023-01-24] MEDS: Sertraline 100 MG Tab PO SCH (09:26)
[2023-01-24] MEDS: Lisinopril 10 MG Tab PO SCH (09:26)
[2023-01-24] MEDS: QUEtiapine 25 MG Tab PO SCH ×2 (10:51→20:43)
[2023-01-24] MEDS: Sulfamethoxazole/Trimethoprim 800-160 MG Tab PO SCH (20:44)
[2023-01-25] MEDS: Omeprazole 20 MG Cap.CR PO SCH (06:24)
[2023-01-25 06:54] LABS: BASOPHILS ABSOLUTE AUTO 0.1 x10^3/uL (0.0-0.2); BASOPHILS PERCENT AUTO 0.5 % (0.2-1.2); EOSINOPHILS ABSOLUTE AUTO 0.3 x10^3/uL (0.0-0.5); EOSINOPHILS PERCENT AUTO 3.1 % (0.0-4.0); HEMOGLOBIN 12.9 g/dL (12.0-16.0); IMMATURE GRAN ABSOLUTE AUTO 0.02 x10^3/uL (0.00-0.07); LYMPHOCYTES ABSOLUTE AUTO 1.7 x10^3/uL (1.0-4.8); LYMPHOCYTES PERCENT AUTO 17.3 % (25.0-50.0); MEAN CORPUSCULAR HGB CONC 34.9 g/dL (32.0-36.0); MEAN CORPUSCULAR VOLUME 91.8 fL (78.0-93.0); MONOCYTES ABSOLUTE AUTO 1.1 x10^3/uL (0.0-0.8); MONOCYTES PERCENT AUTO 11.5 % (2.0-11.0); NEUTROPHILS ABSOLUTE AUTO 6.7 x10^3/uL (1.8-7.7); NEUTROPHILS PERCENT AUTO 67.4 % (50.0-80.0); PLATELET COUNT,PLT 430 x10^3/uL (130-400); RED BLOOD CELL COUNT 4.03 x10^6/uL (4.00-5.50); WHITE BLOOD CELL COUNT,WBC 9.9 x10^3/uL (4.0-10.0)
[2023-01-25 07:11] LABS: CALCIUM 8.7 mg/dL (8.5-10.1); EST CRCL DRUG DOSING (CG) 35.26 mL/min; POTASSIUM,K 4.6 mmol/L (3.5-5.1)
[2023-01-25 07:15] LABS: ANION GAP 9.6 mmol/L (5-15)
[2023-01-25 07:18] VITALS: BP 129/60; PULSE 83
[2023-01-25] MEDS: Levothyroxine 75 MCG Tab PO SCH (07:21)
[2023-01-25] MEDS: Famotidine 20 MG Tab PO SCH (08:45)
[2023-01-25] MEDS: Aspirin 325 MG Tab.EC PO SCH (08:46)
[2023-01-25] MEDS: Lisinopril 10 MG Tab PO SCH (08:46)
[2023-01-25] MEDS: Sennosides/Docusate Sodium 50-8.6 MG Tab PO SCH (08:46)
[2023-01-25] MEDS: amLODIPine 2.5 MG Tab PO SCH (08:46)
[2023-01-25] MEDS: Sertraline 100 MG Tab PO SCH (08:46)
[2023-01-25] MEDS: buPROPion 150 MG Tab.ER PO SCH (08:47)
[2023-01-25] MEDS: QUEtiapine 25 MG Tab PO SCH (08:47)
[2023-01-25] MEDS: Sulfamethoxazole/Trimethoprim 800-160 MG Tab PO SCH (08:47)
[2023-01-25] MEDS: Ondansetron 4 MG Tab.DIS **OWN MED PO PRN (08:48)
[2023-01-25] MEDS: LORazepam 0.5 MG Tab **OWN MED PO PRN (08:51)
== END 2023-01-25 10:00 | DRG 690 ==
LOC: UNDOADMIN 07:06 → VM.MS 07:06
PROVIDERS: ADMIT Family Medicine; ATTEND Internal Medicine
DX: N39.0 Urinary tract infection, site not specified (principal); R44.3 Hallucinations, unspecified; D32.9 Benign neoplasm of meninges, unspecified; I10 Essential (primary) hypertension; F41.9 Anxiety disorder, unspecified; F32.A Depression, unspecified; E66.9 Obesity, unspecified; E03.9 Hypothyroidism, unspecified; K59.00 Constipation, unspecified; K21.9 Gastro-esophageal reflux disease without esophagitis; E78.5 Hyperlipidemia, unspecified; M81.0 Age-related osteoporosis without current pathological fracture; E55.9 Vitamin D deficiency, unspecified; R53.1 Weakness; B96.20 Unspecified Escherichia coli [E. coli] as the cause of diseases classified elsewhere; I16.0 Hypertensive urgency; E78.00 Pure hypercholesterolemia, unspecified; Z86.16 Personal history of COVID-19; Z90.710 Acquired absence of both cervix and uterus; Z79.899 Other long term (current) drug therapy
CPT/HCPCS: 36415; 70450; 80048; 80053; 81001; 81003; 85025; 87086; 87088; 87186; 92507-GN; 92522-GN; 95851-GO; 97110-GP; 97112-GP; 97116-GP; 97164-GP; 97530-GO; 97530-GP; 97535-GO; A9270-GY